=== PATIENT | male | born 1970 | race Caucasian/White ===

== ENCOUNTER 2020-12-09 11:40 | Observation (INO) | payer OTHER, SELFPAY ==
[2020-12-09] VITALS (7 sets, daily range): BP systolic 117–150; BP diastolic 76–106; PULSE 83–109; RESP 16–28; TEMP 35.9–36.7; O2SAT 96–100; BMI 28.9
--- NOTE | ~2020-12-09 | MR_ITS ---
EXAMINATION: MR brain/brain stem wo/w con EXAM DATE: 12/10/2020 10:32 INDICATION: Dysarthria. Headache. Slurred speech. Trigeminal neuralgia, facial pain. Right arm pain. TECHNIQUE: Multi-sequential, multiplanar MR images of the brain, brainstem, internal auditory canals were obtained without contrast. Whole brain sagittal T1, axial diffusion, gradient echo (T2*), T1, T 2, FLAIR sequences obtained. High resolution coronal 3-D FIESTA, coronal T1 FSE, axial T1 FSPGR of t he internal auditory canals. Patient was then injected with 14 cc Multihance contrast intravenously. Postcontrast axial and coronal T1 weighted whole brain, axial and coronal high resolution T1 IAC seq uences obtained. Correlation is made to head CT from yesterday. FINDINGS: No evidence of mastoid or middle ear opacification. The trigeminal and 7th/8th cranial ne rve complexes are symmetric, normal in course and caliber. No cerebellopontine angle masses. Exotic Dancer ior fossa unremarkable. There are no areas of restricted diffusion to suggest acute infarction. There is no acute hemorrhage seen on the T2*, a hemosiderin sensitive sequence. No intraparenchymal brain mass. The ventricles a re normal in size. There are no extra-axial collections. Flow voids are seen in the cerebral arteri es on the T2-weighted sequences consistent with their expected patency. The orbits are unremarkable. Soft tissue is unremarkable. IMPRESSION: 1. No acute intracranial findings. Reviewed, dictated and finalized at location A.
--- NOTE | ~2020-12-09 | CT_ITS ---
EXAMINATION: CT brain wo con EXAM DATE: 12/09/2020 12:44 INDICATION: Dysarthria, headache 5-7 days. Slurred speech and right facial pain. TECHNIQUE: Spiral CT of the head was performed without contrast. Axial, coronal and sagittal images were reviewed. The dose-length product (DLP) for this examination was 605.33 mGy-cm. The exposure w as tailored according to patient size, and iterative reconstruction (ASIR) was used as additional dos e reduction technique. Comparison is made to prior examination from 06/06/2019. FINDINGS: There is no acute intraparenchymal hemorrhage. No evidence of intraparenchymal brain mass lesion. No evidence of acute infarction. There is no mass effect or midline shift. The ventricles are normal in size. There are no extra-axial collections. There are no acute calvarial fractures. T he orbits are unremarkable. There is mild intracranial arterial sclerosis. Soft tissue is unremarkabl e. The visualized sinuses and mastoid air cells are well aerated. IMPRESSION: 1. No acute intracranial findings. Reviewed, dictated and finalized at location A.
--- NOTE | ~2020-12-09 | XR_ITS ---
XR chest 1V portable 12/09/2020 12:53 Indication: Transient alteration of awareness Procedure: AP portable chest Comparison: Comparison to multiple prior studies sequentially, with oldest reviewed study dated 06/13. Findings: There is chronic lingular scarring. Heart size normal. No focal air space disease, pulmonar y edema, pleural effusion or suspected pneumothorax. There are surgical changes of the left shoulder. Impression: 1: No acute cardiopulmonary disease. Reviewed, dictated and finalized at location B. Impression: 1: No acute cardiopulmonary disease.
--- NOTE | 2020-12-09 12:30 | ECG_ITS ---
Measurements Intervals [place] Rate: 102 P: 55 CO: 144 QRS: 52 QRSD: 90 T: 58 QT: 304 QTc: 396 Interpretive Statements SINUS TACHYCARDIA BORDERLINE ECG Electronically Signed On 12-09-2020 13:00:04 CDT by Sadi Karimi D.O.
[2020-12-09 12:42] LABS: Basophils Absolute Auto 0.1 K/mm3 (0.0-0.1); Basophils Percent Auto 1.1 % (0.2-1.2); Eosinophils Absolute Auto 0.2 K/mm3 (0-0.3); Eosinophils Percent Auto 2.1 % (0-4.4); Hematocrit 43.5 % (42.0-52.0); Hemoglobin 15.1 g/dL (14.0-18.0); Immature Granulocyte Absolute 0.05 K/mm3 (0.00-0.031); Immature Granulocyte Percent A 0.6 % (0-0.5); Lymphocytes Absolute Auto 2.21 K/mm3 (0.9-3.2); Lymphocytes Percent Auto 27.6 % (18.3-44.2); Mean Corpuscular HGB Conc 34.7 g/dl (32-36); Mean Corpuscular Hemoglobin 31.7 pg (26-34); Mean Corpuscular Volume 91.4 fl (80-100); Mean Platelet Volume 10.6 fl (7.4-10.4); Monocytes Absolute Auto 0.7 K/mm3 (0.1-0.6); Monocytes Percent Auto 9.3 % (2.6-8.5); Neutrophils Absolute Auto 4.7 K/mm3 (1.3-6.7); Neutrophils Percent Auto 59.3 % (45.5-73.1); Platelet Count Result 164 k/mm3 (150-375); Red Blood Count 4.76 M/mm3 (4.6-6.20); Red Cell Distribution Width 14.5 % (11.5-14.5)
[2020-12-09 12:52] LABS: Prothrombin Time 13.4 Seconds (11.1-14.7)
[2020-12-09 12:53] LABS: Partial Thromboplastin Time 25.6 SECONDS (22.3-36.8)
[2020-12-09 13:04] LABS: Anion Gap 9 mmol/L (8-16); Blood Urea Nitrogen 15 mg/dL (9-20); Calcium 8.7 mg/dL (8.4-10.2); Carbon Dioxide 17 mmol/L (22-30); Chloride 103 mmol/L (98-107); Estimated CRCL calculation 64 ml/min; Estimated Glomerular Filt Rate > 60; Glucose 570 mg/dL (75-110); Potassium 4.2 mmol/L (3.4-5.0); Sodium 129 mmol/L (137-145); Troponin I < 0.012 ng/mL (0.000-0.034)
[2020-12-09] MEDS: HYDROmorphone HCL INJ (*CRX) 1 MG/ML SYR 0.5 MG IV PUSH ×2 (13:54→20:35)
[2020-12-09] MEDS: INSULIN HUMAN REGULAR (*BKC) 100 UNITS/ML 10 UNITS IV PUSH (13:59)
[2020-12-09] MEDS: SODIUM CHLORIDE 0.9% IV 1,000 ML 999 ML IV CONT (14:00)
--- NOTE | 2020-12-09 14:02 | PC.NURSE ---
Pt speech has improved. States he needs to leave soon since he is moving to assisted living in 2 days. RN told pt that the EDP plans to admit him for further neuro workup. Pt states he will agree to stay.
--- NOTE | 2020-12-09 15:00 | PC.NURSE ---
pt states when he goes upstairs he would like to have the following for dinner: - cheeseburger (plain) - fries - iced tea - 3 mustard packets - 5 ketchup packets
[2020-12-09 15:01] LABS: Glucose Point of Care 226 (65-105)
--- NOTE | 2020-12-09 15:49 | ED.NEUROSD ---
HPI - Neuro Symptoms/Deficit General Chief Complaint: Neuro Symptoms/Deficit Stated Complaint: trigeminal neuralgia pain Time Seen by Provider: 12/09/20 12:23 History of Present Illness HPI Narrative: Patient is a 49-year-old male who presents ER with facial pain as well as slurred speech. Patient has history of trigeminal neuralgia and history of TIAs. Last 4 days patient has developed new persistent slurred speech and for couple days cannot speak at all. He has had no focal weakness or numbness of an arm or leg but is had some right-sided arm pain. He also reports he has had significant increase in the pain in his face related to his trigeminal neuralgia. He takes gabapentin daily without improvement of his pain. He has tried Tegretol in the past which does not help either. He has no fevers or chills or sweats. No productive cough. He is currently working to get in with a new neurosurgeon for evaluation of operative procedure to alleviate his discomfort. Related Data Home Medications Medication Instructions Recorded Confirmed albuterol sulfate INHALATION 12/09/20 gabapentin 12/09/20 hydrocodone-acetaminophen tablet 12/09/20 insulin glargine [Basaglar KwikPen SUBCUT 12/09/20 12/09/20 U-100 Insulin] lisinopril 12/09/20 topiramate 12/09/20 Allergies Allergy/AdvReac Type Severity Reaction Status Date / Time latex Allergy Unknown Blister Verified 12/09/20 12:33 Penicillins Allergy Unknown Nausea and Verified 12/09/20 12:33 Vomiting Review of Systems Review of Systems: All systems reviewed & are unremarkable except as noted in HPI and below Constitutional: Constitutional: Denies chills, Denies fever(s) and Denies weakness ENT: Denies nasal congestion and Denies sore throat Cardiovascular: Cardiovascular: Denies chest pain, Denies rapid heart rate and Denies radiating jaw, neck or arm pain Respiratory: Respiratory: Denies cough, Denies dyspnea and Denies wheezing Gastrointestinal: Gastrointestinal: Denies abdominal pain, Denies nausea and Denies vomiting Neurologic: Denies syncope, Denies headache(s), Denies focal weakness and Denies numbness Comments: Facial pain, dysarthria [facility] Past Medical History Medical History (Updated 12/09/20 @ 16:47 by Art Nolasco MD) COPD (chronic obstructive pulmonary disease) Diabetes DVT (deep venous thrombosis) Fibromyalgia Hepatitis B Myocardial infarction Pancreatitis TIA (transient ischemic attack) Trigeminal neuralgia Surgical History Surgical History (Updated 12/09/20 @ 15:56 by Art Nolasco MD) History of nasal surgery Social History Social History (Updated 12/09/20 @ 15:57 by Art Nolasco MD) Social History: History of alcohol abuse Gender identity (if verbalized by the patient): Male Exam Narrative: Exam Narrative: GENERAL: Well-appearing, well-nourished, and in no acute distress. HEAD: Normocephalic, atraumatic. EYES: PERRL and EOMI. ENT: Mucous membranes moist. CHEST: Clear to auscultation. No respiratory distress. HEART: Regular rate and rhythm. Normal peripheral pulses. ABDOMEN: Soft, nontender, nondistended. EXTREMITIES: Normal range of motion. No edema. SKIN: Warm, dry, no rash. NEURO: Mild dysarthria. No facial droop. No upper or lower extremity drift. Alert and oriented x3. PSYCH: Normal mood and affect. Course Course Emergency Course: Patient reports he did not take his insulin today because he ran out of needles. His blood sugars improved. Still has some mild dysarthria. Discussed with neurology and recommends admission for MRI to rule out stroke. Will speak with hospitalist service. Vital Signs Vital signs: Vital Signs Temperature 98.0 F 12/09/20 12:02 Pulse Rate 104 H 12/09/20 12:02 Respiratory Rate 18 12/09/20 12:02 Blood Pressure 134/94 H 12/09/20 12:02 Pulse Oximetry 98 12/09/20 12:02 Temperature 98.0 F 12/09/20 12:02 Pulse Rate 95 12/09/20 13:55 Resp
[2020-12-09] MEDS: HYDROcodone/acetaminophen (*CRX) 5-325 MG TABLET 1 TAB PO (17:10)
--- NOTE | 2020-12-09 18:05 | PC.NURSE ---
When performing the [place] Screening, the patient stated that he has thoughts of ending his own life, the patient states that he has no plans on how he would do that, the patient states that he has no intentions on ending his own life. Kanwal [place] notified of screen results.
--- NOTE | 2020-12-09 18:17 | PC.NURSE ---
Pt came out to room to ask if he can go downstairs to the cafeteria. This nurse explained to the patient that patients can not leave the unit. The patient got upset and started saying profanities. The patient stated that he is mad that he did not get the dinner that he wanted. This nurse offered a box lunch and he stated that he did not want it. This nurse offered to help the patient order another meal. The patient is currently on the phone to order a different tray and the patient took the box lunch.
--- NOTE | 2020-12-09 18:28 | PC.NURSE ---
The patient came out into the [place] and approached this nurse stating that he will not eat mashed potatoes and that he wants sri lankan fries. This nurse explained to the patient that his current diet limits sri lankan fries, but that the patient had the option to speak with the physician about his diet when the evening physicians round on him. The patient stated that this nurse has not helped him at all. The patient also told this nurse that she's been nothing but but a smart mouth The patient is continuing to use profanities with staff.
--- NOTE | 2020-12-09 19:45 | PM.IMHP ---
H&P: HPI History of Present Illness Date/Time: 12/09/20 19:45 Chief Complaint: Severe right-sided facial pain for the past 5 days++ Narrative: This is a 49-year-old diabetic male known to have a history of previous alcoholism, liver disease, and poorly controlled trigeminal neuralgia who presented to the hospital with a complaint of severe right-sided facial pain over the past 5 days. Patient also complains of slurred speech over the past 4 days which he states is related to his right-sided facial pain. Patient admits that he has had 15 years of poorly controlled right-sided facial pain which has been attributed to trigeminal neuralgia and he has seen neuro surgery for same which has recommended surgery as his pain has not been controlled well with medications. The patient has poorly controlled diabetes and admits to often not taking his insulin. Tonight he tells me he has not taken his insulin over the past few days because he is out of needles. Patient denies any difficulty swallowing, focal weakness, numbness, tingling, or facial droop. On further review he denies any fevers, chills, cough, chest pain, nausea, vomiting, abdominal pain, dysuria, hematuria, diarrhea, rectal bleeding, or lower extremity swelling. Patient decided to come to the hospital today as his right-sided facial pain was so severe he could no longer take it at home. On my encounter with him he admits that his slurred speech has improved significantly but he believes he still is not at baseline and has ongoing severe right-sided facial pain. The patient reports that he has a history of previous TIAs. ER provider has consulted neurology who has requested that we admit the patient to the hospital for stroke workup. The patient has no other complaints at this time. Review of Systems Review of Systems: All systems reviewed & are unremarkable except as noted in HPI and below PMFSH Past Medical History Medical History COPD (chronic obstructive pulmonary disease) Diabetes DVT (deep venous thrombosis) Fibromyalgia H/O: HTN (hypertension) Hepatitis B Myocardial infarction Pancreatitis TIA (transient ischemic attack) Trigeminal neuralgia Surgical History Surgical History History of nasal surgery Family History Family History Mother Breast cancer Social History Social History Social History: History of alcohol abuse Smoking status: Current every day smoker Tobacco type: cigars Alcohol intake: former Substance use: current Gender identity (if verbalized by the patient): Male Sexual Orientation (if Verbalized by the Patient): Straight or Heterosexual Spiritual care concerns: No Meds Home Medications and Allergies Home Medications Medication Instructions Recorded Confirmed Type albuterol sulfate 2 inh INHALATION PRN PRN 12/09/20 12/09/20 History gabapentin 600 mg PO TID 12/09/20 12/09/20 History insulin glargine [Basaglar KwikPen 20 unit SUBCUT DAILY 12/09/20 12/09/20 History U-100 Insulin] lisinopril 20 mg PO DAILY 12/09/20 12/09/20 History topiramate 50 mg PO BID 12/09/20 12/09/20 History Allergies Allergy/AdvReac Type Severity Reaction Status Date / Time latex Allergy Unknown Blister Verified 12/09/20 12:33 Penicillins Allergy Unknown Nausea and Verified 12/09/20 12:33 Vomiting Vital Signs Vital Signs - 24 hr 12/09/20 12:02 12/09/20 12:24 12/09/20 12:32 Temperature 36.7 C Pulse Rate 104 H 99 109 H Respiratory Rate 18 20 28 H Blood Pressure 134/94 H 123/90 123/90 Pulse Oximetry 98 96 96 12/09/20 13:55 12/09/20 17:10 12/09/20 17:40 Temperature 35.9 C L Pulse Rate 95 83 107 H Respiratory Rate 21 H 16 18 Blood Pressure 133/106 H 125/93 H 150/76 H Pulse Oximetry 100 100 100 Exam
[2020-12-09 20:04] LABS: Glucose Point of Care 323 (65-105)
[2020-12-09] MEDS: INSULIN ASPART (*BKC) 100 UNITS/ML 6 UNITS SUB-Q (20:34)
[2020-12-09] MEDS: GABAPENTIN 300 MG CAPSULE 600 MG PO (20:45)
[2020-12-09] MEDS: NICOTINE (*PBKC) 14 MG PATCH 1 PATCH TRANSDERM (20:46)
[2020-12-09] MEDS: TOPIRAMATE 25 MG TABLET 50 MG PO (20:46)
[2020-12-09] MEDS: LORazepam (*CRX) 0.5 MG TABLET PO (21:45)
[2020-12-09] MEDS: HYDROcodone/acetaminophen (*CRX) 7.5-325 MG TABLET 1 TAB PO (23:09)
[2020-12-10 00:55] LABS: Glucose Point of Care 265 (65-105)
[2020-12-10 02:13] LABS: Glucose Point of Care 422 (65-105)
[2020-12-10] MEDS: INSULIN ASPART (*BKC) 100 UNITS/ML 9 UNITS SUB-Q ×2 (02:40→12:33)
[2020-12-10] MEDS: HYDROcodone/acetaminophen (*CRX) 7.5-325 MG TABLET 1 TAB PO ×3 (03:10→12:35)
[2020-12-10 04:00] VITALS: PULSE 79
[2020-12-10] MEDS: LORazepam (*CRX) 0.5 MG TABLET PO (04:39)
[2020-12-10] MEDS: HYDROmorphone HCL INJ (*CRX) 1 MG/ML SYR 0.5 MG IV PUSH (05:15)
[2020-12-10 06:00] VITALS: BP 122/90; PULSE 100; RESP 20; TEMP 36.2; O2SAT 98
[2020-12-10 06:48] LABS: Basophils Absolute Auto 0.1 K/mm3 (0.0-0.1); Basophils Percent Auto 1.2 % (0.2-1.2); Eosinophils Absolute Auto 0.4 K/mm3 (0-0.3); Eosinophils Percent Auto 4.4 % (0-4.4); Hematocrit 44.4 % (42.0-52.0); Immature Granulocyte Absolute 0.04 K/mm3 (0.00-0.031); Immature Granulocyte Percent A 0.5 % (0-0.5); Lymphocytes Absolute Auto 2.96 K/mm3 (0.9-3.2); Lymphocytes Percent Auto 34.9 % (18.3-44.2); Mean Corpuscular HGB Conc 33.8 g/dl (32-36); Mean Corpuscular Hemoglobin 31.7 pg (26-34); Mean Corpuscular Volume 93.9 fl (80-100); Mean Platelet Volume 10.6 fl (7.4-10.4); Platelet Count Result 161 k/mm3 (150-375); Red Blood Count 4.73 M/mm3 (4.6-6.20); Red Cell Distribution Width 14.6 % (11.5-14.5); White Blood Count 8.5 K/mm3 (4.5-10.0)
[2020-12-10 06:57] LABS: Anion Gap 3 mmol/L (8-16); Blood Urea Nitrogen 14 mg/dL (9-20); Calcium 8.6 mg/dL (8.4-10.2); Carbon Dioxide 27 mmol/L (22-30); Chloride 107 mmol/L (98-107); Estimated CRCL calculation 51 ml/min; Estimated Glomerular Filt Rate 53; Glucose 280 mg/dL (75-110); Magnesium 1.9 mg/dL (1.6-2.3); Potassium 4.1 mmol/L (3.4-5.0); Sodium 137 mmol/L (137-145)
[2020-12-10 07:50] LABS: Glucose Point of Care 302 (65-105)
[2020-12-10 08:00] VITALS: PULSE 99
[2020-12-10] MEDS: INSULIN ASPART (*BKC) 100 UNITS/ML SUB-Q ×2 (08:00→14:50)
[2020-12-10] MEDS: INSULIN GLARGINE (*BKC) 100 UNITS/ML 20 UNITS SUB-Q (08:03)
[2020-12-10] MEDS: NICOTINE (*PBKC) 14 MG PATCH 1 PATCH TRANSDERM (08:08)
[2020-12-10] MEDS: GABAPENTIN 300 MG CAPSULE 600 MG PO ×2 (08:08→12:35)
[2020-12-10] MEDS: TOPIRAMATE 25 MG TABLET 50 MG PO (08:09)
[2020-12-10] MEDS: lisinopriL 20 MG TABLET PO (08:09)
[2020-12-10 11:31] LABS: Glucose Point of Care 435 (65-105)
[2020-12-10 12:00] VITALS: PULSE 91
--- NOTE | 2020-12-10 12:59 | WPDNEURCNPN ---
Assessment and Plan Assessment and plan (1) H/O: HTN (hypertension): Code(s): Z86.79 - Personal history of other diseases of the circulatory system Status: Chronic (2) Uncontrolled diabetes mellitus: Qualifiers: Diabetes mellitus type: type 2 Glycemic state: with hyperglycemia Qualified Code(s): E11.65 - Type 2 diabetes mellitus with hyperglycemia Code(s): E11.65 - Type 2 diabetes mellitus with hyperglycemia Status: Chronic (3) Trigeminal neuralgia: Code(s): G50.0 - Trigeminal neuralgia Status: Acute Additional Plan Chronic trigeminal neuralgia by history for which patient has already consulted the neurosurgical service at [facility] and awaiting the change in insurance company for the surgical intervention at the same time he has a except that new gabapentin has been helping the most in addition to the hydrocodone treatment will be continued as such Consult date: 12/10/20 Time Seen: 11:30 HPI: Marshall Nix III is a 49 year old maleHas been admitted to the hospital for the complaints of severe right-sided facial pain of 5 days duration in addition to history of 1. Previous alcoholism 2. Hepatic disease 3. Poorly controlled trigeminal neuralgic he presented to the hospital for the complains severe right-sided facial pain along with the slurred speech of 4 days duration in addition he reported that he has history of 15 years of poorly controlled right-sided facial pain attributed to trigeminal neuralgia he has been seen by the neurosurgical service at [facility] which were not accepting his present insurance so he is awaiting for the change in the insurance to get the surgical intervention he gave no history of any other associated neurological symptomatology he does have ongoing history of 1. Diabetes mellitus 2. COPD 3. Fibromyalgia 4. Hypertension 5. Hepatitis-B present he has been continued on gabapentin 600 mg p.o. t.i.d. which he thinks is the most helpful for him in addition to topiramate 50 mg twice a day and his antihypertensive medication and insulin lab again 20units subcu daily. Review of Systems Review of Systems: All systems reviewed & are unremarkable except as noted in HPI and below PMFSH Past Medical History Medical History COPD (chronic obstructive pulmonary disease) Diabetes DVT (deep venous thrombosis) Fibromyalgia H/O: HTN (hypertension) Hepatitis B Myocardial infarction Pancreatitis TIA (transient ischemic attack) Trigeminal neuralgia Surgical History Surgical History History of nasal surgery Family History Family History Mother Breast cancer Social History Social History Social History: History of alcohol abuse Smoking status: Current every day smoker Tobacco type: cigars Alcohol intake: former Substance use: current Gender identity (if verbalized by the patient): Male Sexual Orientation (if Verbalized by the Patient): Straight or Heterosexual Spiritual care concerns: No Meds Home Medications and Allergies Home Medications Medication Instructions Recorded Confirmed Type albuterol sulfate 2 inh INHALATION PRN PRN 12/09/20 12/09/20 History gabapentin 600 mg PO TID 12/09/20 12/09/20 History insulin glargine [Basaglar KwikPen 20 unit SUBCUT DAILY 12/09/20 12/09/20 History U-100 Insulin] lisinopril 20 mg PO DAILY 12/09/20 12/09/20 History topiramate 50 mg PO BID 12/09/20 12/09/20 History lorazepam [Ativan] 1 mg PO Q4H PRN 12/10/20 12/10/20 History Allergies Allergy/AdvReac Type Severity Reaction Status Date / Time latex Allergy Unknown Blister Verified 12/09/20 12:33 Penicillins Allergy Unknown Nausea and Verified 12/09/20 12:33 Vomiting Vital Signs Vital Signs - 24 hr 12/09/20 13:55 12/09/20 17:10 12/09/20 17:4
[2020-12-10 14:00] VITALS: BP 125/79; PULSE 93; RESP 20; TEMP 36.2; O2SAT 98
[2020-12-10] MEDS: LORazepam (*CRX) 1 MG TABLET PO (14:01)
[2020-12-10 14:32] LABS: Glucose Point of Care 326 (65-105)
--- NOTE | 2020-12-10 15:28 | PM.DS ---
DS: Admitting Diagnosis Admitting Diagnosis Admitting Diagnosis: facial pain DS: Discharge Diagnosis Discharge Diagnosis (1) Trigeminal neuralgia: Code(s): G50.0 - Trigeminal neuralgia Status: Acute Assessment and Plan: Patient's pain has improved the day of discharge and was eager to go home. Follow-up with established surgeon (2) Dysarthria: Code(s): R47.1 - Dysarthria and anarthria Status: Acute Assessment and Plan: Patient does have a chronic mild dysarthria but he reports no change. MRI of the brain negative (3) Uncontrolled diabetes mellitus: Qualifiers: Diabetes mellitus type: type 2 Glycemic state: with hyperglycemia Qualified Code(s): E11.65 - Type 2 diabetes mellitus with hyperglycemia Code(s): E11.65 - Type 2 diabetes mellitus with hyperglycemia Status: Chronic Assessment and Plan: Last glucose 326 down from 435. Patient has an A1c of 12.5. He states he did not take his insulin because he was out. I called his pharmacy who stated that he has insulin ready for pickup as well as needles with no co-pay. 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 He says he has a glucometer and lancets. He understands the repercussions of uncontrolled diabetes and states he will establish with a primary care physician. (4) H/O: HTN (hypertension): Code(s): Z86.79 - Personal history of other diseases of the circulatory system Status: Chronic Assessment and Plan: Last blood pressure 125/79. Continue lisinopril. (5) Tobacco dependence: Code(s): F17.200 - Nicotine dependence, unspecified, uncomplicated Status: Chronic Assessment and Plan: I have counseled the patient for 4 minutes regarding tobacco cessation. DS: Summary Hospital Course Hospital Course: Patient is a 49 year old male with a history diabetes and trigeminal neuralgia who presented emergency room facial pain, headache, and possible slurred speech. Vitals in the ER were Pulse 104, respiratory rate 18, blood pressure 134/94, pulse ox 98 on room air. CBC within normal limits. BMP showed a glucose of 570. Head CT was negative for acute pathology as was the chest x-ray. Patient was admitted to the hospitalist service under observation for stroke rule out. His symptoms improved throughout his stay. He obtained an MRI of the brain which was negative for acute pathology. The patient stated he was at baseline the day of discharge and was eager to go. I suspect his symptoms were due to facial pain from trigeminal neuralgia with possible migraine/headache. As for his uncontrolled diabetes, he states he has not been taking his insulin because he was at of needles. He says he has all other devices at home to monitor his blood glucose. I called his pharmacy directly and the pharmacist told me he has refills of the needles and insulin already ordered. I spoke to the patient about this and he is going to go pick them up. He understands that his diabetes is under control and understands the complications in the risk of this. He needs a primary care physician and I gave him information on a clinic where he is staying. He is going to follow-up with them next week. Patient was educated about the worrisome signs and symptoms come back to emergency room for was discharged stable condition. Time spent discussing smoking cessation with patient: more than 10 minutes Status at Discharge Functional status at discharge: independent ambulation Overall status at discharge: patient is back to baseline Time Spent with Patient Time attestation: Total time spent providing and/or coordinating discharge services:38 min Time spent: Greater than 30 minutes Exam Narrative: Exam Narrative: General: Well developed well nourished patient in NAD HEENT: normocephalic, pain to the right lateral cheek. Abl
[2020-12-10 19:05] LABS: Hemoglobin A1C 12.5 % (<5.7)
== END 2020-12-10 15:52 | disposition home or self-care (01) ==
LOC: ANHED 16:47 → ANH3MEDSUR 17:11
PROVIDERS: Family Medicine; Physician Assistant; Admitting Provider Internal Medicine; Emergency Provider Emergency Medicine; Visit Provider Internal Medicine
DX: G50.0 Trigeminal neuralgia (principal); R47.1 Dysarthria and anarthria; E11.65 Type 2 diabetes mellitus with hyperglycemia; F17.290 Nicotine dependence, other tobacco product, uncomplicated; J44.9 Chronic obstructive pulmonary disease, unspecified; I10 Essential (primary) hypertension; I25.2 Old myocardial infarction; Z86.73 Personal history of transient ischemic attack (TIA), and cerebral infarction without residual deficits; Z79.4 Long term (current) use of insulin; Z86.718 Personal history of other venous thrombosis and embolism
CPT/HCPCS: 36415; 70450; 70553; 71045; 80048; 82948; 83036; 83735; 84443; 84484; 85025; 85610; 85730; 93005; 96361; 96374; 96375; 96376; 99285; A9270; A9577; G0378; G0379; J1170; J1815; J7030

== ENCOUNTER 2021-05-08 15:45 | Outpatient (CLI) | payer OTHER, SELFPAY ==
--- NOTE | ~2021-05-08 | MR_ITS ---
EXAMINATION: MR knee LT wo con DATE: 05/08/2021 16:38 INDICATION: Tear of the medial meniscus of the left knee TECHNIQUE: Magnetic resonance imaging (MRI) of the left knee was performed without intravenous contra st. Sequences included coronal PD-weighted FSE, coronal PD-weighted FS FSE, sagittal T2-weighted FSE , sagittal PD-weighted FS FSE and axial PD weighted fat saturated FSE. COMPARISON: None. FINDINGS: Medial compartment: Medial meniscus is normal. There is prominent edema throughout the medial femoral condyle centered ar ound a region of subtle depression and irregularity of the articular cortex at the anterior weightbea ring medial femoral condyle. Differential would include impaction, stress or insufficiency fracture. The articular cartilage in the medial compartment including over the region of cortical irregularity appears normal. Lateral compartment: Lateral meniscus is normal. Articular cartilage is normal. Patellofemoral compartment: Small region of deep chondral ulceration at the inferior aspect of the medial trochlea. At the site o f the ulceration is a small central subchondral osteophyte which projects 2 mm beyond the articular c ortex. Articular cartilage in the patellofemoral compartment is otherwise normal. Ligaments and tendons: Anterior and posterior cruciate ligaments are normal. The medial collateral ligament and fibular garrick ateral ligament complex are normal. The extensor mechanism is normal. The visualized medial and later al hamstring tendons as well as the iliotibial band are normal. Fluid: Physiologic amount of fluid in the joint space. No loose osteochondral bodies identified. IMPRESSION: 1. Minimal depression of small portion of the articular surface at the anterior weightbearing medial femoral condyle with prominent surrounding marrow edema which represent sequela of either impaction, stress or insufficiency fracture. 2. Small region of high-grade chondromalacia at the inferior aspect of the medial trochlea. Reviewed, dictated and finalized at location B. IMPRESSION: 1. Minimal depression of small portion of the articular surface at the anterior weightbearing medial femoral condyle with prominent surrounding marrow edema w hich represent sequela of either impaction, stress or insufficiency fracture. 2. Small region of high-grade chondromalacia at the inferior aspect of the medi al trochlea.
== END 2021-05-08 15:46 | disposition home or self-care (01) ==
PROVIDERS: Visit Provider Physician Assistant
DX: S83.242A Other tear of medial meniscus, current injury, left knee, initial encounter (principal); M79.89 Other specified soft tissue disorders; M94.262 Chondromalacia, left knee
CPT/HCPCS: 73721

== ENCOUNTER 2021-08-09 12:07 | Emergency (ER) | payer OTHER, SELFPAY ==
[2021-08-09 12:34] VITALS: BP 152/106; PULSE 112; RESP 16; TEMP 36.4; O2SAT 100
--- NOTE | 2021-08-09 12:35 | ED.GENADULT ---
HPI - General Adult General Chief complaint: Nausea/Vomiting/Diarrhea Stated complaint: vomiting,uti Time Seen by Provider: 08/09/21 12:23 Source: patient and family Mode of arrival: ambulatory Limitations: no limitations History of Present Illness HPI narrative: Patient came to the emergency room with his because of intermittent vomiting. Patient also have history of trigeminal neuralgia, and his home medication does not work and his neurologist declined his insurance and would like to have help. Patient requested anxiety and pain medication. Patient denies any fever, chills, abdominal pain, diarrhea or constipation. Patient is fully vaccinated for COVID-19. . Patient complaining of intermittent chronic right facial pain, today is not different than before.. Patient requesting a prescription for pain medication Related Data Home Medications Medication Instructions Recorded Confirmed No Home Medications 08/09/21 08/09/21 Allergies Allergy/AdvReac Type Severity Reaction Status Date / Time latex Allergy Unknown Blister Verified 08/09/21 12:48 Penicillins Allergy Unknown Nausea and Verified 08/09/21 12:48 Vomiting ketorolac [From Toradol] Allergy Unknown Verified 08/09/21 12:59 morphine AdvReac Vomiting Verified 08/09/21 12:59 Review of Systems Review of Systems: CONSTITUTIONAL: Denies fever, chills, or sweats. EYES: Denies visual changes, redness, or discharge. ENT: Denies rhinorrhea, congestion, sore throat, or otalgia. CARDIOVASCULAR: Denies chest pain, palpitations, or edema. RESPIRATORY: Denies cough or dyspnea. GASTROINTESTINAL: Denies abdominal pain, nausea, vomiting, or diarrhea. GENITOURINARY: Denies dysuria or hematuria. SKIN: Denies rash or itching. MUSCULOSKELETAL: Denies back pain, joint pain, or myalgia. NEUROLOGIC: Denies headache, numbness, or weakness. PSYCHIATRIC: Anxious PMFSH Past Medical History Medical History COPD (chronic obstructive pulmonary disease) Diabetes DVT (deep venous thrombosis) Fibromyalgia H/O: HTN (hypertension) Hepatitis B Myocardial infarction Pancreatitis TIA (transient ischemic attack) Trigeminal neuralgia Surgical History Surgical History History of nasal surgery Family History Family History Mother Breast cancer Social History Social History Social History: History of alcohol abuse Smoking status: Current every day smoker Tobacco type: cigars Alcohol intake: former Substance use: current Gender identity (if verbalized by the patient): Male Sexual Orientation (if Verbalized by the Patient): Straight or Heterosexual Spiritual care concerns: No Exam Narrative: General appearance: Well-developed, well-nourished Skin: Normal color Head: Normocephalic, nontraumatic Eyes: Clear conjunctiva ENT: Oropharynx normal, ears normal, nose normal Neck: Supple, nontender Chest and respiratory: Airway patent, no respiratory distress, no accessory muscle use Heart: Regular rate/rhythm Abdomen: Soft, nontender, no organomegaly, quiet bowel sounds Vascular: Normal peripheral pulses, normal capillary refill. Musculoskeletal: Normal range of motion, nontender back Neurologic: Alert and oriented ?3, [employer] is normal as tested, no gross motor deficit Course Course Emergency Course: Stable Vital Signs Vital signs: Vital Signs Temperature 36.4 C L 08/09/21 12:34 Pulse Rate 112 H 08/09/21 12:34 Respiratory Rate 16 08/09/21 12:34 Blood Pressure 152/106 H
[2021-08-09] MEDS: SODIUM CHLORIDE 0.9% IV 1,000 ML 999 ML IV CONT (12:56)
[2021-08-09 13:00] LABS: Basophils Absolute Auto 0.1 K/mm3 (0.0-0.1); Basophils Percent Auto 0.4 % (0.2-1.2); Eosinophils Absolute Auto 0.1 K/mm3 (0-0.3); Eosinophils Percent Auto 1.2 % (0-4.4); Hemoglobin 14.6 g/dL (14.0-18.0); Immature Granulocyte Absolute 0.06 K/mm3 (0.00-0.031); Immature Granulocyte Percent A 0.5 % (0-0.5); Lymphocytes Absolute Auto 1.59 K/mm3 (0.9-3.2); Lymphocytes Percent Auto 13.1 % (18.3-44.2); Mean Corpuscular Hemoglobin 33.1 pg (26-34); Mean Corpuscular Volume 97.5 fl (80-100); Mean Platelet Volume 9.9 fl (7.4-10.4); Monocytes Absolute Auto 1.5 K/mm3 (0.1-0.6); Monocytes Percent Auto 12.5 % (2.6-8.5); Neutrophils Absolute Auto 8.8 K/mm3 (1.3-6.7); Neutrophils Percent Auto 72.3 % (45.5-73.1); Platelet Count Result 144 k/mm3 (150-375); Red Blood Count 4.41 M/mm3 (4.6-6.20); Red Cell Distribution Width 14.8 % (11.5-14.5); White Blood Count 12.1 K/mm3 (4.5-10.0)
[2021-08-09 13:09] LABS: Add Urine Microscopic? YES; Appearance Urine Clear (Clear); Bacteria Urine Trace /hpf; Bilirubin Urine Negative (Negative); Blood Urine 1+ (Negative); Color Urine Straw (Yellow); Glucose Urine UA Negative (Negative); Ketones Urine Negative (Negative); Leukocyte Esterase Ur 2+ LEU/UL (Negative); Nitrate Urine Negative (Negative); Protein Urine Negative (Negative); Urobilinogen Urine Negative mg/dL (<2.0); WBC Urine 21-30 /hpf
[2021-08-09 13:14] LABS: Amphetamine Screen Urine Negative (Negative); Barbiturate Screen Urine Negative (Negative); Benzodiazepines Screen Urine Negative (Negative); Cannabinoid Screen Urine Negative (Negative); Cocaine Screen Urine Negative (Negative); Methadone Screen Urine Negative (Negative); Opiate Screen Urine Negative (Negative); Phencyclidine Screen Urine Negative (Negative); Specific Grav Ur 1.003 (1.001-1.035)
[2021-08-09 13:21] VITALS: PULSE 88; RESP 16; O2SAT 98
[2021-08-09] MEDS: HYDROmorphone HCL INJ (*CRX) 1 MG/ML SYR 0.5 MG IV PUSH (14:06)
[2021-08-09] MEDS: METOCLOPRAMIDE HCL INJ 10 MG/2 ML VIAL IV PUSH (14:07)
[2021-08-09] MEDS: LORazepam INJ (*CRX) 2 MG/ML VIAL 1 MG IV PUSH (14:07)
[2021-08-09] MEDS: diphenhydrAMINE HCl INJ 50 MG/ML VIAL 25 MG IV PUSH (14:07)
[2021-08-09 14:20] VITALS: BP 146/105; PULSE 90; RESP 16; O2SAT 99
== END 2021-08-09 14:42 | disposition home or self-care (01) ==
PROVIDERS: Emergency Provider Emergency Medicine
DX: G50.0 Trigeminal neuralgia (principal); R11.10 Vomiting, unspecified; J44.9 Chronic obstructive pulmonary disease, unspecified; E11.9 Type 2 diabetes mellitus without complications; I10 Essential (primary) hypertension; I25.2 Old myocardial infarction; M79.7 Fibromyalgia; Z86.718 Personal history of other venous thrombosis and embolism; Z86.19 Personal history of other infectious and parasitic diseases; Z86.73 Personal history of transient ischemic attack (TIA), and cerebral infarction without residual deficits; F17.290 Nicotine dependence, other tobacco product, uncomplicated
CPT/HCPCS: 36415; 80307; 81001; 85025; 87077; 87086; 87088; 87186; 96361; 96374; 96375; 99284; J1170; J1200; J2060; J2765; J7030

== ENCOUNTER 2021-08-31 13:20 | Emergency (ER) | payer OTHER, SELFPAY ==
[2021-08-31 13:41] VITALS: BP 100/71; PULSE 116; RESP 18; TEMP 36.4; O2SAT 100
[2021-08-31 14:03] LABS: Glucose Point of Care 183 mg/dl (65-105)
--- NOTE | 2021-08-31 14:03 | PC.NURSE ---
Per mother pt had verbalized thoughts yesterday of harming himself. Pt adamantly denies SI or HI thoughts and wants to go home. States i cant wait that long, theyre not going to tell me anything different. I just want to go home. Mom at bedside states that she will be leaving after the doctor sees him and wont be giving him a ride home.
--- NOTE | 2021-08-31 14:25 | PC.NURSE ---
Pt having chest pain but refusing an EKG. States I dont want none of that. Is the doctor going to be in soon I cant wait no 2 hours. Pt told that the doctor will be in as soon as he can but there are other patients. Pt states I know you guys are busy. I just cant wait that long.
--- NOTE | 2021-08-31 14:28 | PC.NURSE ---
Pt also refusing to be hooked up to cardiac monitors and changing into a gown.
[2021-08-31 14:40] LABS: Alanine Aminotransferase 42 U/L (4-50); Albumin Level 3.4 g/dL (3.5-5.1); Alkaline Phosphatase 128 U/L (38-126); Anion Gap 10 mmol/L (8-16); Aspartate Amino Transferase 49 U/L (17-59); Blood Urea Nitrogen 53 mg/dL (9-20); Carbon Dioxide 16 mmol/L (22-30); Chloride 97 mmol/L (98-107); Estimated CRCL calculation 43 ml/min; Estimated Glomerular Filt Rate 53; Glucose 180 mg/dL (65-110); Sodium 123 mmol/L (137-145)
--- NOTE | 2021-08-31 14:41 | PC.NURSE ---
PT asking nurse to remove his IV. States he is leaving and calling a cab. RN asked pt again if he was having any thoughts of self harm. Pt again denied having any suicidal thoughts or plan. Pts mom yelling at him to sit down and stay and see the doctor. PT states he is not staying and proceeds to walk out of department after IV removed. Pt on the phone with [employer] and ambulated out of department with mom following behind him.
[2021-08-31 15:53] LABS: Basophils Absolute Auto 0.1 K/mm3 (0.0-0.1); Basophils Percent Auto 0.5 % (0.2-1.2); Eosinophils Absolute Auto 0.1 K/mm3 (0-0.3); Eosinophils Percent Auto 0.5 % (0-4.4); Hemoglobin 13.3 g/dL (14.0-18.0); Immature Granulocyte Absolute 0.16 K/mm3 (0.00-0.031); Immature Granulocyte Percent A 1.1 % (0-0.5); Lymphocytes Absolute Auto 3.35 K/mm3 (0.9-3.2); Lymphocytes Percent Auto 22.7 % (18.3-44.2); Mean Corpuscular Hemoglobin 33.8 pg (26-34); Mean Corpuscular Volume 96.4 fl (80-100); Mean Platelet Volume 10.9 fl (7.4-10.4); Monocytes Absolute Auto 1.5 K/mm3 (0.1-0.6); Monocytes Percent Auto 10.1 % (2.6-8.5); Neutrophils Absolute Auto 9.6 K/mm3 (1.3-6.7); Neutrophils Percent Auto 65.1 % (45.5-73.1); Nucleated Red Blood Cells Perc 0.1 % (0.0-0.2); Platelet Count Result 187 k/mm3 (150-375); Red Blood Count 3.94 M/mm3 (4.6-6.20); Red Cell Distribution Width 14.5 % (11.5-14.5); White Blood Count 14.8 K/mm3 (4.5-10.0)
== END 2021-09-01 04:09 | disposition left against medical advice (07) ==
PROVIDERS: Emergency Provider Emergency Medicine
DX: R47.81 Slurred speech (principal)
CPT/HCPCS: 36415; 80053; 82948; 85025; 99199

== ENCOUNTER 2021-11-24 14:03 | Emergency (ER) | payer OTHER, SELFPAY ==
[2021-11-24 14:26] VITALS: BP 174/111; PULSE 108; RESP 20; TEMP 37.1; O2SAT 100
[2021-11-24 15:26] LABS: Hematocrit 27.3 % (42.0-52.0); Hemoglobin 8.5 g/dL (14.0-18.0); Mean Corpuscular HGB Conc 31.1 g/dl (32-36); Mean Corpuscular Hemoglobin 29.6 pg (26-34); Mean Corpuscular Volume 95.1 fl (80-100); Mean Platelet Volume 8.6 fl (7.4-10.4); Platelet Count Result 248 k/mm3 (150-375); Red Blood Count 2.87 M/mm3 (4.6-6.20); Red Cell Distribution Width 22.4 % (11.5-14.5); White Blood Count 5.7 K/mm3 (4.5-10.0)
[2021-11-24 15:33] LABS: Eosinophils Absolute Manual 0.05 K/mm3 (0.02-0.5); Eosinophils Percent Manual 1 % (0-4); Lymphocytes Absolute Manual 2.16 K/mm3 (1.1-4.5); Monocytes Absolute Manual 0.57 K/mm3 (0.1-0.90); Monocytes Percent Manual 10 % (3-9); Neutrophils Percent Manual 51 % (46-73); Platelet Estimate Adequate (Adequate); Total Cells Counted 100
[2021-11-24 15:35] LABS: Add Urine Microscopic? YES; Appearance Urine Cloudy (Clear); Bilirubin Urine Negative (Negative); Blood Urine 1+ (Negative); Color Urine Yellow (Yellow); Glucose Urine UA Negative (Negative); Ketones Urine Negative (Negative); Leukocyte Esterase Ur 3+ LEU/UL (Negative); Mucus Urine Rare /lpf; Nitrate Urine Positive (Negative); Protein Urine Negative (Negative); Specific Grav Ur 1.013 (1.001-1.035); Urobilinogen Urine Negative mg/dL (<2.0); WBC Urine 21-30 /hpf
[2021-11-24 15:45] LABS: Alanine Aminotransferase 37 U/L (4-50); Albumin Level 2.6 g/dL (3.5-5.1); Alkaline Phosphatase 185 U/L (38-126); Anion Gap 1 mmol/L (8-16); Aspartate Amino Transferase 51 U/L (17-59); Bilirubin,Total 0.3 mg/dL (0.2-1.3); Blood Urea Nitrogen 11 mg/dL (9-20); Calcium 7.4 mg/dL (8.4-10.2); Carbon Dioxide 25 mmol/L (22-30); Chloride 106 mmol/L (98-107); Estimated CRCL calculation 52 ml/min; Estimated Glomerular Filt Rate > 60; Glucose 92 mg/dL (65-110); Lipase 82 U/L (23-300); Potassium 3.3 mmol/L (3.4-5.0); Sodium 132 mmol/L (137-145)
--- NOTE | 2021-11-24 15:48 | ED.GENADULT ---
HPI - General Adult General Chief complaint: Nausea/Vomiting/Diarrhea Stated complaint: unspecified Time Seen by Provider: 11/24/21 15:24 History of Present Illness HPI narrative: Patient states he does have a abscess in his lung has had persistent nausea and vomiting for the last month and has had swelling of his bilateral feet. Patient states he was recently admitted at [facility] and had been on IV antibiotics for approximately 4 days for a lung abscess. They had discussed transfer to [facility] or [facility]. Patient felt that he was not improving so he decided to sign out AMA and has not had further follow-up. On 11/[address] showing right lower lobe with complex consolidation demonstrating fluid and air measuring 8.4 x 9.6 x 5 cm. Central endobronchial obstructing process cannot be excluded and should be considered. Related Data Home Medications Medication Instructions Recorded Confirmed albuterol sulfate INHALATION 11/24/21 11/24/21 nitrofurantoin monohyd/m-cryst 11/24/21 Allergies Allergy/AdvReac Type Severity Reaction Status Date / Time latex Allergy Unknown Blister Verified 11/24/21 15:17 Penicillins Allergy Unknown Nausea and Verified 11/24/21 15:17 Vomiting ketorolac [From Toradol] Allergy Unknown Verified 11/24/21 15:17 morphine AdvReac Vomiting Verified 11/24/21 15:17 Review of Systems Review of Systems: CONSTITUTIONAL: Denies fever, chills, or sweats. EYES: Denies visual changes, redness, or discharge. ENT: Denies rhinorrhea, congestion, sore throat, or otalgia. CARDIOVASCULAR:bilateral feet swelling RESPIRATORY: Denies cough or dyspnea. GASTROINTESTINAL: n/v GENITOURINARY: Denies dysuria or hematuria. SKIN: Denies rash or itching. MUSCULOSKELETAL: Denies back pain, joint pain, or myalgia. NEUROLOGIC: Denies headache, numbness, or weakness. PSYCHIATRIC: Denies anxiety or depression. [facility] Past Medical History Medical History COPD (chronic obstructive pulmonary disease) Diabetes DVT (deep venous thrombosis) Fibromyalgia H/O: HTN (hypertension) Hepatitis B Myocardial infarction Pancreatitis TIA (transient ischemic attack) Trigeminal neuralgia Surgical History Surgical History History of nasal surgery Family History Family History Mother Breast cancer Social History Social History Social History: History of alcohol abuse Smoking status: Current every day smoker Tobacco type: cigars Alcohol intake: former Substance use: current Gender identity (if verbalized by the patient): Male Sexual Orientation (if Verbalized by the Patient): Straight or Heterosexual Spiritual care concerns: No Exam Narrative: APPEARANCE: Well appearing, no pain, no distress, well-nourished. HEAD: normocephalic, atraumatic. EYES: PERRLA/EOMI, conjunctivae clear. NOSE: Normal no drainage RESPIRATORY: Airway patent, respirations nonlabored. Clear to auscultation bilaterally, no rales, rhonchi, wheezing. CARDIOVASCULAR: Regular rate and rhythm without murmurs rubs or gallops. ABDOMINAL: Soft, nontender, nondistended, normal bowel sounds MUSCULOSKELETAL: Moves all extremities. Strength/ROM intact, No edema, No calf tenderness. NEURO: Alert. Cranial nerves II through XII intact. Good gait. Good coordination SKIN: Warm, dry. Normal Color Course Course Emergency Course: Patient initially declined the CT. Ultimately patient decided to leave [place]. Patient states he will go to either [facility] or [place]. Patient was well-appearing in no distress at time of leaving. Vital Signs Vital signs: Vital Signs Temperature 98.8 F 11/24/21 14:26 Pulse Rate 108 H 11/24/21 14:26 Respiratory Rate 20 11/24/21 14:26 Blood Pressure 174/111 H 11/24/21 14:26 Pulse Oximetry 100 11/24/21 14:26 Temperatu
--- NOTE | 2021-11-24 16:09 | PC.NURSE ---
interactive video technician to charge desk to inform staff that patient was trying to decide if he wanted to the scan done. pt asked by this RN if he was refusing CT scan and pt reporting yeah I don't want no cat scan, I've already had one of those . pt stating he wants to go over to [facility] and receive care there because he doesn't want to be at our hospital for 11 hours. pt signed refusal of care and AMA form. pt understands risks of leaving.
== END 2021-11-24 16:18 | disposition left against medical advice (07) ==
PROVIDERS: Emergency Medicine; Emergency Provider Emergency Medicine
DX: R11.2 Nausea with vomiting, unspecified (principal); R06.00 Dyspnea, unspecified; J44.9 Chronic obstructive pulmonary disease, unspecified; E11.9 Type 2 diabetes mellitus without complications; Z86.718 Personal history of other venous thrombosis and embolism; I10 Essential (primary) hypertension; I25.2 Old myocardial infarction; M79.7 Fibromyalgia; Z86.73 Personal history of transient ischemic attack (TIA), and cerebral infarction without residual deficits; F17.290 Nicotine dependence, other tobacco product, uncomplicated
CPT/HCPCS: 36415; 80053; 81001; 83690; 85025; 87077; 87086; 87088; 87186; 99283

== ENCOUNTER 2021-12-10 12:10 | Emergency (ER) | payer OTHER, SELFPAY ==
--- NOTE | ~2021-12-10 | CT_ITS ---
EXAMINATION: CT abdomen pelvis w con DATE: 12/10/2021 14:21 INDICATION: Decreased appetite for one month. Nausea and vomiting. TECHNIQUE: Computed tomography (CT) of the abdomen and pelvis was performed with 100 CC Omnipaque 350 intravenous contrast. Automated exposure control and iterative reconstruction technique were employe d. Exam dose: 375.41 mGy-cm total exam DLP. COMPARISON: Numerous CT abdomen pelvis FINDINGS: There is minimal discoid atelectasis or scarring at the lingula. There is right lower lobe infiltrate and atelectasis. There is prominent soft tissue density within the distal esophageal lumen, measuring up to 2 cm AP an d 2.5 cm transverse dimension. This might be refluxed gastric contents, versus retained foodstuffs du e to distal esophageal stricture or soft tissue mass of the esophagus. There is circumferential soft tissue thickening of the distal esophageal wall. Further evaluation by means of this area and swallow or upper endoscopy is recommended. 6.8 mm gallstone is noted in the dependent gallbladder lumen. No gallbladder wall thickening or peric holecystic fluid or fat stranding. There is prominent surface nodularity of the liver, consistent with cirrhosis. Spleen is within upper normal limits for size. No pancreatic mass lesion, calcification or ductal dilatation. Normal morphology of the adrenal glands. And occasional bilateral renal cysts including: Approximately 12 mm upper pole right renal cyst. 11 m m probable left renal cyst. No urinary tract calculus or hydroureteronephrosis. Normal appendix. There is a prominent amount of fecal material within the colon but no evidence of isabelle wel obstruction. No intraperitoneal free air. The urinary bladder and prostate gland are unremarkable. There is atherosclerotic calcification of the abdominal aorta and iliac and femoral arteries but no a neurysm. No intraperitoneal or retroperitoneal or pelvic mass lesion or adenopathy or ascites. 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 Multiple healing bilateral rib fractures. Prominent patchy sclerosis of L4 with partial collapse of this vertebral body, possibly a pathologic fracture this is a new finding since 10/22/2017. Clinical correlation is advised. There is moderate loss of height and anterior wedging of T12 and L1 vertebral bodies; the L1 compress ion fracture is new since 10/22/2017. IMPRESSION: Circumferential soft tissue thickening of the distal esophagus with possible obstructed c ontents of the distal esophagus lumen versus esophageal soft tissue mass lesion. Consider barium swal low or upper endoscopy Cholelithiasis Cirrhosis Bilateral renal cysts Multiple bilateral healing rib fractures and old ununited posterior lateral right 10th rib fracture Chronic T12 compression fracture New L1 compression fracture New patchy sclerosis and partial collapse of L4, suggesting pathologic fracture Reviewed, dictated and finalized at [facility] Reviewed, dictated and finalized at [facility] IMPRESSION: Circumferential soft tissue thickening of the distal esophagus with possible obstructed contents of the distal esophagus lumen versus esophageal s oft tissue mass lesion. Consider barium swallow or upper endoscopy Cholelithiasis Cirrhosis Bilateral renal cysts Multiple bilateral healing rib fractures and old ununited posterior lateral rig ht 10th rib fracture Chronic T12 compression fracture New L1 compression fracture New patchy sclerosis and partial collapse of L4, suggesting pathologic fracture
[2021-12-10 12:14] VITALS: BP 107/62; PULSE 118; RESP 20; TEMP 36.8; O2SAT 98
--- NOTE | 2021-12-10 13:14 | ED.NAVMDI ---
HPI - Nausea/Vomiting/Diarrhea General Chief complaint: Nausea/Vomiting/Diarrhea Stated complaint: N/V Time Seen by Provider: 12/10/21 12:24 History of Present Illness HPI Narrative: 50-year-old male presents the emergency room with abdominal pain nausea vomiting for 3 weeks. Patient states he is unable to keep anything down. Patient is seen here multiple times for similar complaints. Most recently patient was here 3 weeks ago and left AMA. denies fever, denies diarrhea or constipation. Patient does have a history of hernia repair. Related Data Home Medications Medication Instructions Recorded Confirmed albuterol sulfate INHALATION 11/24/21 11/24/21 nitrofurantoin monohyd/m-cryst 11/24/21 Allergies Allergy/AdvReac Type Severity Reaction Status Date / Time latex Allergy Unknown Blister Verified 11/24/21 15:17 Penicillins Allergy Unknown Nausea and Verified 11/24/21 15:17 Vomiting ketorolac [From Toradol] Allergy Unknown Verified 11/24/21 15:17 morphine AdvReac Vomiting Verified 11/24/21 15:17 Review of Systems Review of Systems: CONSTITUTIONAL: Denies fever, chills, or sweats. EYES: Denies visual changes, redness, or discharge. ENT: Denies rhinorrhea, congestion, sore throat, or otalgia. CARDIOVASCULAR: Denies chest pain, palpitations, or edema. RESPIRATORY: Denies cough or dyspnea. GASTROINTESTINAL: Reports abdominal pain, nausea, vomiting GENITOURINARY: Denies dysuria or hematuria. SKIN: Denies rash or itching. MUSCULOSKELETAL: Denies back pain, joint pain, or myalgia. NEUROLOGIC: Denies headache, numbness, dizziness, or weakness. PSYCHIATRIC: Denies anxiety or depression. [facility] Past Medical History Medical History COPD (chronic obstructive pulmonary disease) Diabetes DVT (deep venous thrombosis) Fibromyalgia H/O: HTN (hypertension) Hepatitis B Myocardial infarction Pancreatitis TIA (transient ischemic attack) Trigeminal neuralgia Surgical History Surgical History History of nasal surgery Family History Family History Mother Breast cancer Social History Social History Social History: History of alcohol abuse Smoking status: Current every day smoker Tobacco type: cigars Alcohol intake: former Substance use: current Gender identity (if verbalized by the patient): Male Sexual Orientation (if Verbalized by the Patient): Straight or Heterosexual Spiritual care concerns: No Exam Narrative: GENERAL: Appears ill HEAD: Normocephalic, atraumatic. EYES: PERRLA and EOMI. CHEST: Clear to auscultation. No respiratory distress. No wheezes rales or rhonchi HEART: Regular rate and rhythm. No murmur heard. Normal peripheral pulses. ABDOMEN: Right upper quadrant, right lower quadrant tenderness. Hypoactive bowel sounds EXTREMITIES: Normal range of motion. No edema. SKIN: Warm, dry, no rash. NEURO: No focal deficits. Alert and oriented x3. PSYCH: Normal mood and affect. Course Vital Signs Vital signs: Vital Signs Temperature 36.8 C 12/10/21 12:14 Pulse Rate 118 H 12/10/21 12:14 Respiratory Rate 20 12/10/21 12:14 Blood Pressure 107/62 12/10/21 12:14 Pulse Oximetry 98 12/10/21 12:14 Temperature 36.8 C 12/10/21 12:14 Pulse Rate 118 H 12/10/21 12:14 Respiratory Rate 20 12/10/21 12:14 Blood Pressure 107/62 12/10/21 12:14 Pulse Oximetry 98 12/10/21 12:14 MDM - Nausea/Vomiting/Diarrhea MDM Narrative Medical decision making narrative: 50-year-old male presents emergency room complaining of a nausea and vomiting for multiple weeks. Patient states that he has spot on his lung that requires heavy amounts of opiate pain medicine. Patient states that his last bowel movement was yesterday but it was small in nature. On multi
--- NOTE | 2021-12-10 13:37 | PC.NURSE ---
C/O ABD PAIN, N/V X 1 MONTH. pT REPORTS HE HAS APOINTMENT WITH PCP ON TUESDAY FOR THIS PROBLEM BUT STATES I CAN'T TAKE IT ANYMORE.
[2021-12-10] MEDS: SODIUM CHLORIDE 0.9% IV 1,000 ML 999 ML IV CONT (13:46)
[2021-12-10] MEDS: ONDANSETRON INJ 4 MG/2 ML VIAL IV PUSH (13:46)
[2021-12-10 13:58] LABS: Basophils Absolute Auto 0.1 K/mm3 (0.0-0.1); Basophils Percent Auto 0.7 % (0.2-1.2); Eosinophils Absolute Auto 0.1 K/mm3 (0-0.3); Eosinophils Percent Auto 0.9 % (0-4.4); Hematocrit 32.7 % (42.0-52.0); Hemoglobin 10.6 g/dL (14.0-18.0); Immature Granulocyte Absolute 0.16 K/mm3 (0.00-0.031); Lymphocytes Absolute Auto 1.72 K/mm3 (0.9-3.2); Lymphocytes Percent Auto 11.3 % (18.3-44.2); Mean Corpuscular HGB Conc 32.4 g/dl (32-36); Mean Corpuscular Hemoglobin 30.3 pg (26-34); Mean Corpuscular Volume 93.4 fl (80-100); Mean Platelet Volume 9.7 fl (7.4-10.4); Monocytes Absolute Auto 1.4 K/mm3 (0.1-0.6); Monocytes Percent Auto 9.1 % (2.6-8.5); Neutrophils Absolute Auto 11.7 K/mm3 (1.3-6.7); Platelet Count Result 429 k/mm3 (150-375); Red Cell Distribution Width 19.6 % (11.5-14.5); White Blood Count 15.2 K/mm3 (4.5-10.0)
[2021-12-10 14:06] LABS: Alanine Aminotransferase 100 U/L (4-50); Albumin Level 3.7 g/dL (3.5-5.1); Alkaline Phosphatase 423 U/L (38-126); Anion Gap 9 mmol/L (8-16); Aspartate Amino Transferase 103 U/L (17-59); Bilirubin,Total 0.7 mg/dL (0.2-1.3); Blood Urea Nitrogen 43 mg/dL (9-20); Calcium 8.3 mg/dL (8.4-10.2); Carbon Dioxide 22 mmol/L (22-30); Chloride 102 mmol/L (98-107); Estimated Glomerular Filt Rate > 60; Glucose 171 mg/dL (65-110); Lipase 224 U/L (23-300); Potassium 4.7 mmol/L (3.4-5.0); Sodium 133 mmol/L (137-145)
[2021-12-10 14:30] VITALS: BP 138/78; PULSE 84; RESP 20; TEMP 36.8; O2SAT 96
[2021-12-10 14:41] LABS: Ethanol < 10 mg/dL (<10)
[2021-12-10 15:09] LABS: Add Urine Microscopic? YES; Appearance Urine Clear (Clear); Bacteria Urine Trace /hpf; Bilirubin Urine Negative (Negative); Blood Urine Negative (Negative); Color Urine Yellow (Yellow); Glucose Urine UA Negative (Negative); Ketones Urine Negative (Negative); Leukocyte Esterase Ur Trace LEU/UL (Negative); Mucus Urine Rare /lpf; Nitrate Urine Positive (Negative); Protein Urine Negative (Negative); RBC Urine 0-2 /hpf (0-2); Urobilinogen Urine Negative mg/dL (<2.0); WBC Urine 0-3 /hpf
[2021-12-10 15:15] LABS: Specific Grav Ur 1.036 (1.001-1.035)
[2021-12-10 15:30] LABS: Amphetamine Screen Urine Negative (Negative); Barbiturate Screen Urine Negative (Negative); Benzodiazepines Screen Urine Positive (Negative); Cannabinoid Screen Urine Negative (Negative); Cocaine Screen Urine Negative (Negative); Methadone Screen Urine Negative (Negative); Opiate Screen Urine Negative (Negative); Phencyclidine Screen Urine Negative (Negative)
[2021-12-10 15:36] VITALS: BP 134/68; PULSE 80; RESP 18; TEMP 36.8; O2SAT 95
[2021-12-10] MEDS: MAGNESIUM CITRATE 300 ML BTL PO (15:38)
== END 2021-12-10 15:38 | disposition home or self-care (01) ==
PROVIDERS: Emergency Provider Nurse Practitioner Family
DX: K59.03 Drug induced constipation (principal); J44.9 Chronic obstructive pulmonary disease, unspecified; E11.9 Type 2 diabetes mellitus without complications; M79.7 Fibromyalgia; I25.2 Old myocardial infarction; Z86.73 Personal history of transient ischemic attack (TIA), and cerebral infarction without residual deficits; Z86.718 Personal history of other venous thrombosis and embolism; Z86.19 Personal history of other infectious and parasitic diseases; F17.290 Nicotine dependence, other tobacco product, uncomplicated; K80.20 Calculus of gallbladder without cholecystitis without obstruction; K74.60 Unspecified cirrhosis of liver; N28.1 Cyst of kidney, acquired; M48.56XA Collapsed vertebra, not elsewhere classified, lumbar region, initial encounter for fracture; R93.3 Abnormal findings on diagnostic imaging of other parts of digestive tract
CPT/HCPCS: 36415; 74177; 80053; 80307; 81001; 83690; 85025; 96361; 96374; 99284; A9270; J2405; J7030; Q9967

== ENCOUNTER 2021-12-15 15:17 | Outpatient (CLI) | payer OTHER, SELFPAY ==
[2021-12-15 15:51] LABS: Alanine Aminotransferase 106 U/L (4-50); Albumin Level 3.3 g/dL (3.5-5.1); Alkaline Phosphatase 349 U/L (38-126); Anion Gap 7 mmol/L (8-16); Aspartate Amino Transferase 102 U/L (17-59); Bilirubin,Total 0.3 mg/dL (0.2-1.3); Blood Urea Nitrogen 33 mg/dL (9-20); Calcium 7.8 mg/dL (8.4-10.2); Carbon Dioxide 21 mmol/L (22-30); Chloride 101 mmol/L (98-107); Estimated Glomerular Filt Rate > 60; Glucose 156 mg/dL (65-110); Potassium 4.6 mmol/L (3.4-5.0); Sodium 129 mmol/L (137-145)
[2021-12-21 17:07] LABS: Alpha Fetoprotein Tumor Marker 6.8 ng/mL (<6.1)
== END 2021-12-15 15:18 | disposition home or self-care (01) ==
LOC: ANHLAB 15:19
PROVIDERS: Visit Provider Internal Medicine Gastroenterology
DX: K74.60 Unspecified cirrhosis of liver (principal)
CPT/HCPCS: 36415; 80053; 82105

== ENCOUNTER 2021-12-21 00:07 | Day surgery (SDC) | payer OTHER, SELFPAY ==
[2021-12-17 10:31] VITALS: BMI 25.0
--- NOTE | 2021-12-20 11:33 | PM.HPGS ---
History of Present Illness History of Present Illness Consent: Risks, benefits, and alternatives have been discussed and questions answered. Patient agrees to proceed with procedure. Chief complaint: vomiting Narrative: Marshall Nix III is a 50 year old male who has multiple medical problems. He Was recently hospitalized at [facility] with a lung abscess. He was told that [facility] would need [facility] but he apparently signed out against medical advise. He sees me now because he has lost 60 lb in the last 6 weeks. He, and his mother state that he cannot eat anything but cereal and yogurt. He is frequently nauseated and has had some vomiting. Then they added that he has gained 15 lb back because of the cereal. He does take Advil 6 or 8 tablets per day because he has severe sciatica. He had initially stated he takes no medications, but we did learn that he is on something for diabetes. His mother believes that he has had some small strokes because he at times is slurred when he tries to speak. Review of Systems Review of Systems: All systems reviewed & are unremarkable except as noted in HPI and below PMFSH Past Medical History Medical History COPD (chronic obstructive pulmonary disease) Diabetes DVT (deep venous thrombosis) Fibromyalgia H/O: HTN (hypertension) Hepatitis B Myocardial infarction Pancreatitis TIA (transient ischemic attack) Trigeminal neuralgia Surgical History Surgical History History of nasal surgery Family History Family History Mother Breast cancer Social History Social History Social History: History of alcohol abuse Smoking status: Current every day smoker Tobacco type: cigarettes Alcohol intake: former Substance use: current Substance use type: marijuana Living arrangements: alone Gender identity (if verbalized by the patient): Male Sexual Orientation (if Verbalized by the Patient): Straight or Heterosexual Spiritual care concerns: No Meds Home Medications and Allergies Home Medications Medication Instructions Recorded Confirmed Type ibuprofen 200 mg capsule 600 mg PO Q6H PRN 12/15/21 12/17/21 History citalopram 20 mg PO DAILY 12/17/21 12/17/21 History ibuprofen-diphenhydramine cit 1 cap PO HS PRN 12/17/21 12/17/21 History [Advil PM] insulin glargine [Basaglar KwikPen 20 unit SUBCUT DAILY 12/17/21 12/17/21 History U-100 Insulin] Allergies Allergy/AdvReac Type Severity Reaction Status Date / Time latex Allergy Unknown Blister Verified 12/21/21 12:13 Penicillins Allergy Unknown Nausea and Verified 12/21/21 12:13 Vomiting morphine AdvReac Nausea Verified 12/21/21 12:13 Exam Const: General: alert Orientation/consciousness: patient oriented x3 Resp: Auscultation: clear to auscultation bilaterally Cardio: Rhythm: regular rhythm GI: GI Palp: Yes Soft to palpation and No Tenderness to palpation present (GI) Neuro: General: patient oriented x3 Assessment and Plan Assessment and plan (1) Nausea and vomiting: Code(s): R11.2 - Nausea with vomiting, unspecified Status: Acute Assessment and Plan: EGD with possible biopsy or dilatation or cautery.
[2021-12-21 12:14] VITALS: BP 132/84; PULSE 92; RESP 20; TEMP 36.2; O2SAT 100; BMI 25.6
[2021-12-21 12:16] LABS: Glucose Point of Care 172 mg/dl (65-105)
[2021-12-21] MEDS: LACTATED RINGERS 1,000 ML 150 ML IV CONT (12:16)
--- NOTE | 2021-12-21 12:55 | WPDANESEPPF ---
Anes - Initial Pre Proc Eval Procedure: Operation Date: 12/21/21 14:00 Proposed Procedures p Esophagogastroduodenoscopy - Carlos Santiago MD Date/Time: 12/21/21 12:55 Surgeon: Carlos Santiago MD Pre Op Diagnosis: vomiting Patient Data Age: 50 Gender: M Height: 1.6 m Weight: 65.6 kg Last Vital Signs Temp 97.2 F L 12/21/21 12:14 Pulse 92 12/21/21 12:14 Resp 20 12/21/21 12:14 BP 132/84 12/21/21 12:14 Pulse Ox 100 12/21/21 12:14 Allergies Allergy/AdvReac Type Severity Reaction Status Date / Time latex Allergy Unknown Blister Verified 12/21/21 12:13 Penicillins Allergy Unknown Nausea and Verified 12/21/21 12:13 Vomiting morphine AdvReac Nausea Verified 12/21/21 12:13 Home Medications Medication Instructions Recorded Confirmed Type ibuprofen 200 mg capsule 600 mg PO Q6H PRN 12/15/21 12/17/21 History citalopram 20 mg PO DAILY 12/17/21 12/17/21 History ibuprofen-diphenhydramine cit 1 cap PO HS PRN 12/17/21 12/17/21 History [Advil PM] insulin glargine [Basaglar KwikPen 20 unit SUBCUT DAILY 12/17/21 12/17/21 History U-100 Insulin] Laboratory Tests 12/21/21 12:14 POC Capillary Glucose 172 mg/dl H mg/dl (65-105) Patient hx anesthesia problems: none Family hx anesthesia problems: none Results Review: All pre-operative results and documents have been reviewed as part of the pre-operative evaluation. [facility] Past Medical History Medical History COPD (chronic obstructive pulmonary disease) Diabetes DVT (deep venous thrombosis) Fibromyalgia H/O: HTN (hypertension) Hepatitis B Myocardial infarction Pancreatitis TIA (transient ischemic attack) Trigeminal neuralgia Surgical History Surgical History History of nasal surgery Family History Family History Mother Breast cancer Social History Social History Social History: History of alcohol abuse Smoking status: Current every day smoker Tobacco type: cigarettes Alcohol intake: former Substance use: current Substance use type: marijuana Living arrangements: alone Gender identity (if verbalized by the patient): Male Sexual Orientation (if Verbalized by the Patient): Straight or Heterosexual Spiritual care concerns: No Anes - Eval Final PreProcedure Day of Procedure 12/21/21 12:55 Patient weight: overweight Heart: regular rate and rhythm Lungs: clear to auscultation Airway: Mallampati scale class III Neurological: alert and oriented Last oral intake: >/= 8 hours ASA classification: III Emergent: no Anesthetic plan: proceed Anesthesia type and monitoring: general GIVS and standard monitoring Results Review: All pre-operative results and documents have been reviewed as part of the pre-operative evaluation. Informed Consent: The patient's anesthetic plan and its attendant risks and benefits were discussed with the patient/family/POA. Questions were solicited and answers provided to the satisfaction of the patient/family/POA.
[2021-12-21 13:15] VITALS: BP 113/76; PULSE 85; RESP 19; O2SAT 100
[2021-12-21 13:25] VITALS: BP 136/96; PULSE 83; RESP 25; O2SAT 99
[2021-12-21 13:32] LABS: Glucose Point of Care 116 mg/dl (65-105)
[2021-12-21 13:35] VITALS: BP 138/93; PULSE 87; RESP 20; O2SAT 100
== END 2021-12-21 13:55 | disposition home or self-care (01) ==
PROVIDERS: Visit Provider Internal Medicine Gastroenterology
PROC: 0DJ08ZZ Inspection of Upper Intestinal Tract, Via Natural or Artificial Opening Endoscopic (ICD-10-PCS; CPT 43235; principal; 2021-12-21 14:00)
DX: R11.2 Nausea with vomiting, unspecified (principal); K22.10 Ulcer of esophagus without bleeding; K29.70 Gastritis, unspecified, without bleeding; I10 Essential (primary) hypertension; I25.2 Old myocardial infarction; J44.9 Chronic obstructive pulmonary disease, unspecified; E11.9 Type 2 diabetes mellitus without complications; M79.7 Fibromyalgia; M54.30 Sciatica, unspecified side; Z86.718 Personal history of other venous thrombosis and embolism; Z86.73 Personal history of transient ischemic attack (TIA), and cerebral infarction without residual deficits
CPT/HCPCS: 43239; 82948; 87081; 88305; J2704; J7120

== ENCOUNTER 2022-02-14 15:36 | Inpatient (IN) | payer OTHER, SELFPAY ==
[2022-02-14] VITALS (24 sets, daily range): BP systolic 96–131; BP diastolic 58–81; PULSE 83–107; RESP 13–21; TEMP 36.6–37; O2SAT 95–100; BMI 33.2
--- NOTE | ~2022-02-14 | US_ITS ---
US abdomen limited INDICATION: Elevated liver function tests. PROCEDURE: Realtime right upper abdominal ultrasound. COMPARISON: No prior studies for comparison. FINDINGS: The pancreas is normal without focal mass or pancreatic ductal dilation. Liver echotexture is increased and heterogeneous, consistent with fatty infiltration. Liver surface is irregular, cons istent with cirrhosis. There is normal directional flow in the portal vein. There is an echogenic foci at the gallbladder neck without definitive shadowing, suspicious for stone . No gallbladder wall thickening or pericholecystic fluid. Common bile duct measures 3 mm. No sonog raphic Neri's sign. There is right renal cyst measuring 1.8 cm at the upper pole. IMPRESSION: 1: Cirrhosis of the liver with fatty infiltration. 2: Possible cholelithiasis located at the gallbladder neck. Reviewed, dictated and finalized at location D.
[2022-02-14] MEDS: SODIUM CHLORIDE 0.9% IV 1,000 ML 999 ML IV CONT (16:34)
[2022-02-14 16:39] LABS: Basophils Absolute Auto 0.1 K/mm3 (0.0-0.1); Basophils Percent Auto 0.4 % (0.2-1.2); Eosinophils Percent Auto 0.3 % (0-4.4); Hematocrit 30.7 % (42.0-52.0); Hemoglobin 9.6 g/dL (14.0-18.0); Immature Granulocyte Absolute 0.08 K/mm3 (0.00-0.031); Immature Granulocyte Percent A 0.7 % (0-0.5); Lymphocytes Absolute Auto 1.58 K/mm3 (0.9-3.2); Lymphocytes Percent Auto 13.6 % (18.3-44.2); Mean Corpuscular HGB Conc 31.3 g/dl (32-36); Mean Corpuscular Hemoglobin 23.7 pg (26-34); Mean Corpuscular Volume 75.8 fl (80-100); Mean Platelet Volume 9.9 fl (7.4-10.4); Monocytes Absolute Auto 1.3 K/mm3 (0.1-0.6); Monocytes Percent Auto 11.3 % (2.6-8.5); Neutrophils Absolute Auto 8.6 K/mm3 (1.3-6.7); Neutrophils Percent Auto 73.7 % (45.5-73.1); Platelet Count Result 231 k/mm3 (150-375); Red Blood Count 4.05 M/mm3 (4.6-6.20); Red Cell Distribution Width 19.1 % (11.5-14.5); White Blood Count 11.6 K/mm3 (4.5-10.0)
[2022-02-14 16:49] LABS: Alanine Aminotransferase 133 U/L (6-50); Albumin Level 3.7 g/dL (3.5-5.1); Alkaline Phosphatase 314 U/L (38-126); Anion Gap 10 mmol/L (8-16); Aspartate Amino Transferase 125 U/L (17-59); Bilirubin,Total 1.3 mg/dL (0.2-1.3); Blood Urea Nitrogen 55 mg/dL (9-20); Calcium 7.8 mg/dL (8.4-10.2); Carbon Dioxide 16 mmol/L (22-30); Chloride 96 mmol/L (98-107); Estimated CRCL calculation 29 ml/min; Estimated Glomerular Filt Rate 26; Glucose 269 mg/dL (65-110); Potassium 5.8 mmol/L (3.4-5.0); Sodium 122 mmol/L (137-145)
[2022-02-14 17:06] LABS: Appearance Urine Cloudy (Clear); Bilirubin Urine Negative (Negative); Blood Urine 1+ (Negative); Color Urine Yellow (Yellow); Glucose Urine UA Negative (Negative); Ketones Urine Negative (Negative); Leukocyte Esterase Ur 2+ LEU/UL (Negative); Nitrate Urine Negative (Negative); Protein Urine 1+ mg/dL (Negative); Urobilinogen Urine 0.2 mg/dL (<2.0)
[2022-02-14 17:10] LABS: Add Urine Microscopic? YES; Amorphous Sediment Urine Few; Bacteria Urine Trace /hpf; Mucus Urine Rare /lpf; Squamous Epithelial Cell Urine Rare /hpf (Few); WBC Urine >75 /hpf
--- NOTE | 2022-02-14 17:29 | ED.GENADULT ---
HPI - General Adult General Chief complaint: Unspecified Stated complaint: not feeling well Time Seen by Provider: 02/14/22 15:59 History of Present Illness HPI narrative: 51-year-old male presenting to the emergency department for evaluation of dehydration and tachycardia. Patient states yesterday he feels that he was given methamphetamine. Patient states he does use methamphetamine but not that much . Patient states that yesterday morning he drank something that had been spike with methamphetamine and patient states he spent the majority of the day walking. Patient went to a stranger's house today and complained of feeling tired. Patient arrived by EMS. Patient denies any chest pain or shortness of breath. Reports feeling thirsty. Patient is complaining of sciatic pain. Related Data Home Medications Medication Instructions Recorded Confirmed ibuprofen 200 mg capsule 600 mg PO Q6H PRN Pain 12/15/21 12/17/21 citalopram 20 mg tablet 20 mg PO DAILY 12/17/21 12/17/21 ibuprofen-diphenhydramine citrate 1 cap PO HS PRN Sleep 12/17/21 12/17/21 200 mg-38 mg tablet (Advil PM) insulin glargine 100 unit/mL (3 20 unit subcut DAILY 12/17/21 12/17/21 mL) subcutaneous pen (Basaglar KwikPen U-100 Insulin) Allergies Allergy/AdvReac Type Severity Reaction Status Date / Time latex Allergy Unknown Blister Verified 12/21/21 12:13 Penicillins Allergy Unknown Nausea and Verified 12/21/21 12:13 Vomiting Review of Systems Review of Systems: CONSTITUTIONAL: Denies fever, chills, or sweats. EYES: Denies visual changes, redness, or discharge. ENT: Denies rhinorrhea, congestion, sore throat, or otalgia. CARDIOVASCULAR: Denies chest pain, palpitations, or edema. RESPIRATORY: Denies cough or dyspnea. GASTROINTESTINAL: Denies abdominal pain, nausea, vomiting, or diarrhea. GENITOURINARY: Denies dysuria or hematuria. SKIN: Denies rash or itching. MUSCULOSKELETAL: Sciatic pain NEUROLOGIC: Denies headache, numbness, or weakness. [facility] Past Medical History Medical History COPD (chronic obstructive pulmonary disease) Diabetes DVT (deep venous thrombosis) Fibromyalgia H/O: HTN (hypertension) Hepatitis B Myocardial infarction Pancreatitis TIA (transient ischemic attack) Trigeminal neuralgia Surgical History Surgical History History of nasal surgery Family History Family History Mother Breast cancer Social History Social History Social History: History of alcohol abuse Smoking status: Current every day smoker Tobacco type: cigarettes Alcohol intake: former Substance use: current Substance use type: marijuana Gender identity (if verbalized by the patient): Male Sexual Orientation (if Verbalized by the Patient): Straight or Heterosexual Spiritual care concerns: No Exam Narrative: APPEARANCE: Well appearing, no pain, no distress, well-nourished. HEAD: normocephalic, atraumatic. EYES: PERRLA/EOMI, conjunctivae clear. NOSE: Normal no drainage THROAT: Pharynx clear, no exudate. NECK: Supple. No adenopathy, no masses. RESPIRATORY: Airway patent, respirations nonlabored. Clear to auscultation bilaterally, no rales, rhonchi, wheezing. CARDIOVASCULAR: Regular rate and rhythm without murmurs rubs or gallops. ABDOMINAL: Soft, nontender, nondistended, normal bowel sounds MUSCULOSKELETAL: Moves all extremities. Strength/ROM intact, No edema, No calf tenderness. NEURO: Alert. Cranial nerves II through XII intact. Grossly intact SKIN: Warm, dry. Normal Color PSYCHIATRIC: Anxious affect. Psychomotor agitation Course Course Emergency Course: Patient does have multiple electrolyte abnormalities. Patient's sodium was 122. Potassium 5.8. ANIRUDH with a creatinine of 2.6 compared to his baseline of 0.9. P
[2022-02-14] MEDS: SODIUM CHLORIDE 0.9% IV 1,000 ML 400 ML IV CONT (17:30)
[2022-02-14 17:37] LABS: Barbiturate Screen Urine Negative (Negative); Benzodiazepines Screen Urine Positive (Negative)
[2022-02-14 17:46] LABS: Cannabinoid Screen Urine Negative (Negative); Cocaine Screen Urine Negative (Negative); Methadone Screen Urine Negative (Negative); Opiate Screen Urine Negative (Negative); Phencyclidine Screen Urine Negative (Negative)
[2022-02-14 17:52] LABS: Ethanol < 10 mg/dL (<10)
[2022-02-14 17:54] LABS: Creatine Kinase 654 U/L (55-170)
[2022-02-14 18:12] LABS: Amphetamine Screen Urine Positive (Negative)
[2022-02-14 19:28] LABS: Anion Gap 10 mmol/L (8-16); Blood Urea Nitrogen 52 mg/dL (9-20); Calcium 7.3 mg/dL (8.4-10.2); Carbon Dioxide 15 mmol/L (22-30); Chloride 100 mmol/L (98-107); Estimated CRCL calculation 34 ml/min; Estimated Glomerular Filt Rate 31; Glucose 222 mg/dL (65-110); Potassium 4.5 mmol/L (3.4-5.0); Sodium 125 mmol/L (137-145)
--- NOTE | 2022-02-14 19:49 | PM.IMHP ---
H&P: HPI History of Present Illness Date/Time: Patient was placed observation status for expected length of stay less than 23 hours for management, will plan to re-evaluate tomorrow for improvement. 02/14/22 19:49 Chief Complaint: Altered mental status Narrative: Mr. Nix is a 51-year-old gentleman who presented to emergency room via EMS after being found in somebody's yard and complaining of feeling tired. At this point time patient is not able to give a full history because he is confused and not making any sense. Per emergency room records patient had told them that he had been given methamphetamines yesterday and he did take the methamphetamines, but he did not ?take that much?. Patient states that he occasionally does do methamphetamines, and he only ingest some orally. Patient states he does not do any other drugs. When asked about past medical history patient cannot relate any past medical history. Per emergency room records patient states he was drinking alcohol yesterday, but I am unable to tell if patient did drink any alcohol because he does not recall. Patient states he does feel extremely thirsty at this time. Per previous medical records patient does have a history of COPD, diabetes mellitus, DVT, fibromyalgia, hypertension, hepatitis-B, TIA, pancreatitis, and trigeminal neuralgia. Review of Systems Review of Systems: I am unable to obtain review of systems from patient secondary to confusion and altered mental status. [facility] Past Medical History Medical History COPD (chronic obstructive pulmonary disease) Diabetes DVT (deep venous thrombosis) Fibromyalgia H/O: HTN (hypertension) Hepatitis B Myocardial infarction Pancreatitis TIA (transient ischemic attack) Trigeminal neuralgia Surgical History Surgical History History of nasal surgery Family History Family History Mother Breast cancer Social History Social History Social History: History of alcohol abuse Smoking status: Current every day smoker Tobacco type: cigarettes Alcohol intake: former Substance use: current Substance use type: marijuana Gender identity (if verbalized by the patient): Male Sexual Orientation (if Verbalized by the Patient): Straight or Heterosexual Spiritual care concerns: No Meds Home Medications and Allergies Home Medications Medication Instructions Recorded Confirmed Type ibuprofen 200 mg capsule 600 mg PO Q6H PRN Pain 12/15/21 12/17/21 History citalopram 20 mg tablet 20 mg PO DAILY 12/17/21 12/17/21 History ibuprofen-diphenhydramine citrate 1 cap PO HS PRN Sleep 12/17/21 12/17/21 History 200 mg-38 mg tablet (Advil PM) insulin glargine 100 unit/mL (3 20 unit subcut DAILY 12/17/21 12/17/21 History mL) subcutaneous pen (Basaglar KwikPen U-100 Insulin) pantoprazole 40 mg tablet,delayed 40 mg PO BID #60 tabs 12/21/21 Rx release Allergies Allergy/AdvReac Type Severity Reaction Status Date / Time latex Allergy Unknown Blister Verified 12/21/21 12:13 Penicillins Allergy Unknown Nausea and Verified 12/21/21 12:13 Vomiting Vital Signs Vital Signs - 24 hr 02/14/22 15:39 02/14/22 15:48 02/14/22 15:40 Temperature 37.0 C Pulse Rate 101 H 102 H Respiratory Rate 20 20 16 Blood Pressure 96/61 L Pulse Oximetry 96 96 97 Oxygen Delivery Room Air 02/14/22 15:41 02/14/22 15:45 02/14/22 16:00 Temperature Pulse Rate 102 H 103 H 107 H Respiratory Rate 19 21 H 20 Blood Pressure 96/61 L Pulse Oximetry 97 100 Oxygen Delivery 02/14/22 16:01 02/14/22 16:22 02/14/22 16:34 Temperature Pulse Rate 102 H 107 H 104 H Respiratory Rate 17 19 18 Blood Pressure 107/75 131/75 Pulse Oximetry 98 98 Oxygen Delivery 02/14/22 16:35 02/14/22 16:49
[2022-02-14 21:04] LABS: Glucose Point of Care 181 mg/dl (65-105)
--- NOTE | 2022-02-14 21:08 | ADMGEN ---
This patient, Marshall Nix III, was admitted to IMU Room 232-01 at 2044. Patient/family oriented to hospital policies and general routines including ID bracelet, bed and alarms, visiting hours, pain management, procedures, bathroom and other care routines, personal items, smoking policy, room service/diet, and visiting hours. Information on how to activate the Rapid Response Team has been discussed. Patient/Family are encouraged to report perceived risks to care and to ask questions if they do not understand what they are told or what they should do.
[2022-02-14 21:09] LABS: Chloride 100 mmol/L (98-107)
[2022-02-14] MEDS: SODIUM CHLORIDE 0.9% IV 1,000 ML 100 ML IV CONT (21:09)
[2022-02-14 21:13] LABS: Alanine Aminotransferase 121 U/L (6-50); Albumin Level 3.5 g/dL (3.5-5.1); Alkaline Phosphatase 280 U/L (38-126); Anion Gap 8 mmol/L (8-16); Aspartate Amino Transferase 113 U/L (17-59); Bilirubin,Total 0.8 mg/dL (0.2-1.3); Blood Urea Nitrogen 50 mg/dL (9-20); Calcium 7.4 mg/dL (8.4-10.2); Carbon Dioxide 18 mmol/L (22-30); Creatine Kinase 825 U/L (55-170); Estimated CRCL calculation 36 ml/min; Estimated Glomerular Filt Rate 33; Glucose 182 mg/dL (65-110); Potassium 4.2 mmol/L (3.4-5.0); Sodium 126 mmol/L (137-145)
[2022-02-14] MEDS: HEPARIN SODIUM 5,000 UNITS/ML VIAL 5000 UNITS SUB-Q (21:55)
[2022-02-15] VITALS (7 sets, daily range): BP systolic 114–124; BP diastolic 56–76; PULSE 75–113; RESP 16–18; TEMP 36.2–36.7; O2SAT 91–99
[2022-02-15] MEDS: LORazepam (*CRX) 0.5 MG TABLET PO ×2 (04:26→21:14)
[2022-02-15 05:01] LABS: Basophils Absolute Auto 0.1 K/mm3 (0.0-0.1); Basophils Percent Auto 0.7 % (0.2-1.2); Eosinophils Absolute Auto 0.4 K/mm3 (0-0.3); Hematocrit 29.4 % (42.0-52.0); Hemoglobin 9.1 g/dL (14.0-18.0); Immature Granulocyte Absolute 0.04 K/mm3 (0.00-0.031); Immature Granulocyte Percent A 0.6 % (0-0.5); Lymphocytes Absolute Auto 1.93 K/mm3 (0.9-3.2); Lymphocytes Percent Auto 27.1 % (18.3-44.2); Mean Corpuscular Hemoglobin 23.6 pg (26-34); Mean Corpuscular Volume 76.2 fl (80-100); Mean Platelet Volume 9.9 fl (7.4-10.4); Monocytes Absolute Auto 1.2 K/mm3 (0.1-0.6); Neutrophils Absolute Auto 3.5 K/mm3 (1.3-6.7); Neutrophils Percent Auto 48.6 % (45.5-73.1); Platelet Count Result 184 k/mm3 (150-375); Red Blood Count 3.86 M/mm3 (4.6-6.20); White Blood Count 7.1 K/mm3 (4.5-10.0)
[2022-02-15 05:35] LABS: Alanine Aminotransferase 112 U/L (6-50); Alkaline Phosphatase 259 U/L (38-126); Anion Gap 4 mmol/L (8-16); Aspartate Amino Transferase 107 U/L (17-59); Bilirubin,Total 0.6 mg/dL (0.2-1.3); Blood Urea Nitrogen 38 mg/dL (9-20); Calcium 7.1 mg/dL (8.4-10.2); Carbon Dioxide 21 mmol/L (22-30); Chloride 104 mmol/L (98-107); Creatine Kinase 705 U/L (55-170); Estimated CRCL calculation 49 ml/min; Estimated Glomerular Filt Rate 49; Glucose 122 mg/dL (65-110); Potassium 3.5 mmol/L (3.4-5.0); Sodium 129 mmol/L (137-145)
[2022-02-15] MEDS: INSULIN GLARGINE (*BKC) 100 UNITS/ML 20 UNITS SUB-Q (09:58)
[2022-02-15] MEDS: CITALOPRAM HYDROBROMIDE 20 MG TABLET PO (10:06)
[2022-02-15] MEDS: HEPARIN SODIUM 5,000 UNITS/ML VIAL 5000 UNITS SUB-Q (10:06)
[2022-02-15 10:07] LABS: Alanine Aminotransferase 118 U/L (6-50); Albumin Level 3.3 g/dL (3.5-5.1); Alkaline Phosphatase 254 U/L (38-126); Anion Gap 6 mmol/L (8-16); Aspartate Amino Transferase 123 U/L (17-59); Bilirubin,Total 0.8 mg/dL (0.2-1.3); Blood Urea Nitrogen 34 mg/dL (9-20); Calcium 7.2 mg/dL (8.4-10.2); Carbon Dioxide 19 mmol/L (22-30); Chloride 103 mmol/L (98-107); Creatine Kinase 667 U/L (55-170); Estimated CRCL calculation 57 ml/min; Estimated Glomerular Filt Rate 58; Glucose 126 mg/dL (65-110); Potassium 4.1 mmol/L (3.4-5.0); Sodium 128 mmol/L (137-145)
[2022-02-15] MEDS: SODIUM CHLORIDE 0.9% IV 1,000 ML 100 ML IV CONT ×2 (12:12→23:15)
[2022-02-15] MEDS: NICOTINE (*PBKC) 4 MG GUM PO ×4 (12:13→21:16)
--- NOTE | 2022-02-15 12:16 | WPDGICN ---
Assessment and Plan Assessment and plan (1) Dysphagia: Code(s): R13.10 - Dysphagia, unspecified Status: Acute Assessment and Plan: a couple months ago he was found on endoscopy to have severe ulceration of his esophagus with Long smooth stricturing. He took pantoprazole for 1 month a states that the pills did not help. he failed to get them refilled no schedule him for EGD to be done tomorrow. He has been fed today are a (2) Nausea and vomiting: Code(s): R11.2 - Nausea with vomiting, unspecified Status: Acute Assessment and Plan: He is no longer vomiting but he feels that is hard eat anything solid. (3) Acute hyponatremia: Code(s): E87.1 - Hypo-osmolality and hyponatremia Status: Acute Assessment and Plan: Sodium was 128 on admission. (4) Altered mental status: Code(s): R41.82 - Altered mental status, unspecified Status: Acute Assessment and Plan: He was very confused on admission apparently had been using methamphetamines and was found in the neighbor's yard. Now he is coherent but tremulous (5) ANIRUDH (acute kidney injury): Code(s): N17.9 - Acute kidney failure, unspecified Status: Acute Assessment and Plan: creatinine 2.6 and BUN 55 at admission. GI Consult Note Consult date/time: 02/15/22 12:16 HPI: Marshall Nix III is a 51 year old male Who was admitted after having been found on the ground after apparently he took some meth amphetamine. He was confused on admission. He tells me that he may have had a small stroke. I had seen him in the office a few months ago regarding chronic nausea and vomiting and poor oral intake. At that time was accompanied by his mother who provided additional history stating that he was not able to eat much of anything except cereal. Despite that he had actually gained about 15 lb after having previously lost a fair bit of weight. This all was within a few weeks of him being seen at [facility] where he had a lung abscess. Apparently was going to be transferred to 1 of the [facility] but he signed out against medical advice. I then performed endoscopy on him in December which revealed extensive ulceration of the lower 2/3 of the esophagus. I have started him on pantoprazole. He is no longer taking that but he states that the pills did no good he points to his right subclavicular area and states that it is uncomfortable when he eats and food will go down. Review of Systems Review of Systems: All systems reviewed & are unremarkable except as noted in HPI and below PMFSH Past Medical History Medical History COPD (chronic obstructive pulmonary disease) Diabetes DVT (deep venous thrombosis) Fibromyalgia H/O: HTN (hypertension) Hepatitis B Myocardial infarction Pancreatitis TIA (transient ischemic attack) Trigeminal neuralgia Surgical History Surgical History History of nasal surgery Family History Family History Mother Breast cancer Social History Social History Social History: History of alcohol abuse Smoking status: Former smoker Tobacco type: cigarettes Alcohol intake: former Substance use: current Substance use type: marijuana, crack/cocaine and methamphetamine Gender identity (if verbalized by the patient): Male Sexual Orientation (if Verbalized by the Patient): Straight or Heterosexual Spiritual care concerns: No Meds Home Medications and Allergies Home Medications Medication Instructions Recorded Confirmed Type ibuprofen 200 mg capsule 600 mg PO Q6H PRN Pain 12/15/21 02/14/22 History citalopram 20 mg tablet 20 mg PO DAILY 12/17/21 02/14/22 History ibuprofen-diphenhydramine citrate 1 cap PO HS PRN Sleep
[2022-02-15 12:22] LABS: Glucose Point of Care 190 mg/dl (65-105)
--- NOTE | 2022-02-15 12:26 | PM.IMPN ---
Progress Note: A&P Assessment and Plan (1) Altered mental status: Code(s): R41.82 - Altered mental status, unspecified Status: Acute Assessment and Plan: Most likely secondary to ingestion of methamphetamines. Improved (2) Acute hyponatremia: Code(s): E87.1 - Hypo-osmolality and hyponatremia Status: Acute Assessment and Plan: Improved, monitor electrolytes. Multifactorial but likely related decreased p.o. intake and dehydration. (3) Acute hyperkalemia: Code(s): E87.5 - Hyperkalemia Status: Acute Assessment and Plan: Monitor (4) ANIRUDH (acute kidney injury): Code(s): N17.9 - Acute kidney failure, unspecified Status: Acute Assessment and Plan: Secondary to dehydration most likely. IV fluids, monitor labs. (5) Acute UTI: Code(s): N39.0 - Urinary tract infection, site not specified Status: Acute Assessment and Plan: IV Rocephin (6) Elevated CK: Code(s): R74.8 - Abnormal levels of other serum enzymes Status: Acute Assessment and Plan: Secondary dehydration and methamphetamine use. Continue IV fluids and supportive care. Trend CK. (7) Dysphagia: Code(s): R13.10 - Dysphagia, unspecified Status: Acute Assessment and Plan: Consul GI CT scan from prior hospitalizations noted. This is a chronic issue secondary to decreased p.o. intake he is having some electrolyte abnormalities. Subjective Date/time seen: 02/15/22 12:26 No new complaints, feeling somewhat better. Ongoing complaints of dysphagia and trouble swallowing and feeling like things are getting stuck in his throat. Review of Systems Review of Systems: 10 point ROS negative except as stated in HPI / Subjective Exam Narrative: Constitutional: Patient is well-nourished in no acute distress. Patient is alert and oriented x1-2 HEENT: Moist mucous membranes. No scleral icterus. No lymphadenopathy. Neck: No carotid bruits noted no JVD noted Lungs: Lung sounds are clear to auscultation bilaterally. No accessory muscle use. No rhonchi, rales, or wheezes noted. Cardiovascular: Apical pulse is regular rhythm and tachycardic S1-S2 noted, no S3 or S4 noted. No gallops, murmurs, or rubs noted. Abdomen: Soft, round, and nontender. No palpable masses. Extremities: No edema. Nontender. Skin: No rashes or lesions. Warm and dry. Skin is intact. Neurological: No focal neurological deficits. Cranial nerves II-XII grossly intact. Psychiatric: Patient is agitated at times and cannot easily answer questions appropriately. Objective Data Vital Signs Vital Signs: Vital Signs - 24 hr 02/14/22 15:39 02/14/22 15:48 02/14/22 15:40 Temperature 98.6 F Pulse Rate 101 H 102 H Respiratory Rate 20 20 16 Blood Pressure 96/61 L Pulse Oximetry 96 96 97 Oxygen Delivery Room Air 02/14/22 15:41 02/14/22 15:45 02/14/22 16:00 Temperature Pulse Rate 102 H 103 H 107 H Respiratory Rate 19 21 H 20 Blood Pressure 96/61 L Pulse Oximetry 97 100 Oxygen Delivery 02/14/22 16:01 02/14/22 16:22 02/14/22 16:34 Temperature Pulse Rate 102 H 107 H 104 H Respiratory Rate 17 19 18 Blood Pressure 107/75 131/75 Pulse Oximetry 98 98 Oxygen Delivery 02/14/22 16:35 02/14/22 16:49 02/14/22 17:00 Temperature Pulse Rate 106 H 107 H 105 H Respiratory Rate 19 18 18 Blood Pressure Pulse Oximetry 100 98 96 Oxygen Delivery 02/14/22 17:01 02/14/22 17:15 02/14/22 17:40 Temperature Pulse Rate 106 H 104 H 103 H Respiratory Rate 16 15 16 Blood Pressure 128/75 Pulse Oximetry 95 Oxygen Delivery 02/14/22 17:45 02/14/22 18:00 02/14/22 18:01 Temperature Pulse Rate 102 H 100 102 H Respiratory Rate 16 13 16 Blood Pressure 118/81 Pulse Oximetry Oxygen Delivery 02/14/22 18:16 02/14/22 18:30 02/14/22 20:12 Temperature Pulse Rate 104 H 105 H 96 Respiratory Rate 16 17 18 Blood Press
--- NOTE | 2022-02-15 12:33 | PC.NURSE ---
This patient, Marshall Nix III, was received from imu 232 on 02/15/22 at 1235. Patient/family oriented to unit policies and routines
[2022-02-15 15:55] LABS: Creatine Kinase 665 U/L (55-170)
[2022-02-15 18:04] LABS: Glucose Point of Care 191 mg/dl (65-105)
[2022-02-15] MEDS: HALOPERIDOL LACTATE 5 MG/ML VIAL IM (21:52)
[2022-02-15 22:06] LABS: Glucose Point of Care 85 mg/dl (65-105)
[2022-02-16 05:19] VITALS: BP 119/81; PULSE 83; RESP 16; TEMP 36.5; O2SAT 100
[2022-02-16 05:31] LABS: Hematocrit 29.1 % (42.0-52.0); Hemoglobin 9.3 g/dL (14.0-18.0); Mean Corpuscular Hemoglobin 23.9 pg (26-34); Mean Corpuscular Volume 74.8 fl (80-100); Mean Platelet Volume 10.1 fl (7.4-10.4); Platelet Count Result 194 k/mm3 (150-375); Red Blood Count 3.89 M/mm3 (4.6-6.20); Red Cell Distribution Width 18.8 % (11.5-14.5); White Blood Count 5.3 K/mm3 (4.5-10.0)
[2022-02-16 05:45] LABS: Anion Gap 3 mmol/L (8-16); Blood Urea Nitrogen 23 mg/dL (9-20); Calcium 7.6 mg/dL (8.4-10.2); Carbon Dioxide 21 mmol/L (22-30); Chloride 105 mmol/L (98-107); Creatine Kinase 320 U/L (55-170); Estimated CRCL calculation 80 ml/min; Estimated Glomerular Filt Rate > 60; Glucose 78 mg/dL (65-110); Potassium 4.3 mmol/L (3.4-5.0); Sodium 129 mmol/L (137-145)
[2022-02-16 07:24] LABS: Glucose Point of Care 89 mg/dl (65-105)
[2022-02-16] MEDS: ACETAMINOPHEN 325 MG TABLET 650 MG PO ×3 (07:56→21:37)
[2022-02-16] MEDS: INSULIN GLARGINE (*BKC) 100 UNITS/ML 10 UNITS SUB-Q (07:57)
[2022-02-16] MEDS: LORazepam (*CRX) 0.5 MG TABLET PO ×2 (07:57→19:54)
[2022-02-16] MEDS: PANTOPRAZOLE 40 MG TABLET PO ×2 (08:00→21:06)
[2022-02-16] MEDS: CITALOPRAM HYDROBROMIDE 20 MG TABLET PO (08:00)
[2022-02-16] MEDS: HEPARIN SODIUM 5,000 UNITS/ML VIAL 5000 UNITS SUB-Q ×2 (08:00→21:37)
[2022-02-16] MEDS: NICOTINE (*PBKC) 4 MG GUM PO (08:00)
[2022-02-16] MEDS: NICOTINE (*PBKC) 14 MG PATCH 1 PATCH TRANSDERM (09:23)
[2022-02-16] MEDS: SODIUM CHLORIDE 0.9% IV 1,000 ML 100 ML IV CONT ×2 (10:33→21:06)
--- NOTE | 2022-02-16 11:35 | PM.IMPN ---
Progress Note: A&P Assessment and Plan (1) Altered mental status: Code(s): R41.82 - Altered mental status, unspecified Status: Acute Assessment and Plan: Most likely secondary to ingestion of methamphetamines. Resolved (2) Acute hyponatremia: Code(s): E87.1 - Hypo-osmolality and hyponatremia Status: Acute Assessment and Plan: Improved, monitor electrolytes. Multifactorial but likely related decreased p.o. intake and dehydration. Monitor labs (3) Acute hyperkalemia: Code(s): E87.5 - Hyperkalemia Status: Acute Assessment and Plan: Monitor (4) ANIRUDH (acute kidney injury): Code(s): N17.9 - Acute kidney failure, unspecified Status: Acute Assessment and Plan: Secondary to dehydration most likely. IV fluids, monitor labs. Now resolved (5) Acute UTI: Code(s): N39.0 - Urinary tract infection, site not specified Status: Acute Assessment and Plan: IV Rocephin Can be switched to oral (6) Elevated CK: Code(s): R74.8 - Abnormal levels of other serum enzymes Status: Acute Assessment and Plan: Secondary dehydration and methamphetamine use. Continue IV fluids and supportive care. Trend CK. Improving (7) Dysphagia: Code(s): R13.10 - Dysphagia, unspecified Status: Acute Assessment and Plan: Consul GI -plan for scope per GI no. However patient did eat something for breakfast according to the nurses staff. Will make the patient NPO tonight and defer to GI for scope planning. CT scan from prior hospitalizations noted. This is a chronic issue secondary to decreased p.o. intake he is having some electrolyte abnormalities. Subjective Date/time seen: 02/16/22 11:35 No new complaints today Exam Narrative: Constitutional: Patient is well-nourished in no acute distress. Patient is alert and oriented x1-2 HEENT: Moist mucous membranes. No scleral icterus. No lymphadenopathy. Neck: No carotid bruits noted no JVD noted Lungs: Lung sounds are clear to auscultation bilaterally. No accessory muscle use. No rhonchi, rales, or wheezes noted. Cardiovascular: Apical pulse is regular rhythm and tachycardic S1-S2 noted, no S3 or S4 noted. No gallops, murmurs, or rubs noted. Abdomen: Soft, round, and nontender. No palpable masses. Extremities: No edema. Nontender. Skin: No rashes or lesions. Warm and dry. Skin is intact. Neurological: No focal neurological deficits. Cranial nerves II-XII grossly intact. Psychiatric: Patient is agitated at times and cannot easily answer questions appropriately. Objective Data Vital Signs Vital Signs: Vital Signs - 24 hr 02/15/22 12:00 02/15/22 16:00 02/15/22 20:01 Temperature 97.2 F L 97.7 F Pulse Rate 99 95 Respiratory Rate 18 16 Blood Pressure 114/56 L 115/58 L Pulse Oximetry 93 99 94 Oxygen Delivery Room Air 02/15/22 22:06 02/15/22 20:00 02/16/22 05:19 Temperature 97.7 F Pulse Rate 83 Respiratory Rate 16 Blood Pressure 119/81 Pulse Oximetry 100 Oxygen Delivery Room Air Room Air 02/16/22 07:52 Temperature Pulse Rate Respiratory Rate Blood Pressure Pulse Oximetry Oxygen Delivery Room Air Intake/Output Intake/Output: Intake & Output 02/13/22 02/14/22 02/15/22 02/16/22 23:59 23:59 23:59 23:59 Intake Total 2050 3730 1740 Output Total 3150 1400 Balance 2050 580 340 Meds/Results Medications: Active Medications Generic Name Dose Route Start Last Admin Trade Name Freq PRN Reason Stop Dose Admin Acetaminophen 650 mg 02/15/22 09:42 02/16/22 07:56 Acetaminophen 325 Mg Tablet PO 650 mg Q4H PRN Administration Headache Citalopram Hydrobromide 20 mg 02/15/22 09:00 02/16/22 08:00 Citalopram Hydrobromide 20 Mg Tablet PO 20 mg DAILY TAHIR Administration Dextrose 12.5 gm 02/14/22 22:13 Dextrose 50% 25 Gm/50 Ml Syringe IV PUSH PRN PRN Hypoglycemia Protocol Gluc
[2022-02-16 11:40] LABS: Glucose Point of Care 128 mg/dl (65-105)
[2022-02-16 14:05] VITALS: BP 144/95; PULSE 92; RESP 20; TEMP 36.5; O2SAT 100
--- NOTE | 2022-02-16 14:30 | PCPTNOTE ---
Attempted PT evaluation, Per RN, patient's blood pressure too high at this time and to try back later. Will follow
[2022-02-16 16:23] LABS: Glucose Point of Care 126 mg/dl (65-105)
--- NOTE | 2022-02-16 17:27 | WPDGIPROGNO ---
Progress Note: A&P Assessment and Plan (1) Altered mental status: Code(s): R41.82 - Altered mental status, unspecified Status: Acute Assessment and Plan: Most likely secondary to ingestion of methamphetamines. Resolved (2) Acute hyponatremia: Code(s): E87.1 - Hypo-osmolality and hyponatremia Status: Acute Assessment and Plan: Improved, monitor electrolytes. Multifactorial but likely related decreased p.o. intake and dehydration. Monitor labs (3) Acute hyperkalemia: Code(s): E87.5 - Hyperkalemia Status: Acute Assessment and Plan: Monitor (4) ANIRUDH (acute kidney injury): Code(s): N17.9 - Acute kidney failure, unspecified Status: Acute Assessment and Plan: Secondary to dehydration most likely. IV fluids, monitor labs. Now resolved (5) Elevated CK: Code(s): R74.8 - Abnormal levels of other serum enzymes Status: Acute Assessment and Plan: Secondary dehydration and methamphetamine use. Continue IV fluids and supportive care. (6) Dysphagia: Code(s): R13.10 - Dysphagia, unspecified Status: Acute Assessment and Plan: I will schedule him for EGD to be done tomorrow. I told that we may or may not be able to perform esophageal dilatation depending on how much is esophagitis has healed.. (7) Erosive esophagitis: Code(s): K22.10 - Ulcer of esophagus without bleeding Status: Acute Assessment and Plan: he had diffuse concentric circumferential ulceration of more than half of his esophagus when examined a couple months ago. Hopefully this is improved although he did not stay on pantoprazole as planned Subjective Date/time seen: 02/16/22 17:27 he states that he is only able to swallow Cheerios with milk. He did have some oatmeal today. He says other food consistencies he cannot tolerate. He says occasionally he can get some hard boiled egg down if he takes tiny bites. He has difficulty with pasta and breads. He admits that he did not continue to take the pantoprazole that we had started him on for his severe esophagitis that was found a couple of months ago. Review of Systems Review of Systems: All systems reviewed & are unremarkable except as noted in HPI and below Exam Const: General: alert Orientation/consciousness: patient oriented x3 HENMT: Teeth and gingiva: edentulous Resp: Auscultation: clear to auscultation bilaterally Cardio: Rhythm: regular rhythm GI: GI Palp: Yes Soft to palpation and No Tenderness to palpation present (GI) Neuro: General: patient oriented x3 Objective Data Vital Signs Vital Signs: Vital Signs - 24 hr 02/15/22 20:01 02/15/22 22:06 02/15/22 20:00 Temperature Pulse Rate Respiratory Rate Blood Pressure Pulse Oximetry 94 Oxygen Delivery Room Air Room Air Room Air 02/16/22 05:19 02/16/22 07:52 02/16/22 15:35 Temperature 36.5 C Pulse Rate 83 Respiratory Rate 16 Blood Pressure 119/81 Pulse Oximetry 100 Oxygen Delivery Room Air Room Air Intake/Output Intake/Output: Intake & Output 02/13/22 02/14/22 02/15/22 02/16/22 23:59 23:59 23:59 23:59 Intake Total 2050 3730 3480 Output Total 3150 1400 Balance 2050 580 2080 Meds/Results Medications: Active Medications Generic Name Dose Route Start Last Admin Trade Name Freq PRN Reason Stop Dose Admin Acetaminophen 650 mg 02/15/22 09:42 02/16/22 17:02 Acetaminophen 325 Mg Tablet PO 650 mg Q4H PRN Administration Headache Citalopram Hydrobromide 20 mg 02/15/22 09:00 02/16/22 08:00 Citalopram Hydrobromide 20 Mg Tablet PO 20 mg DAILY TAHIR Administration Dextrose 12.5 gm 02/14/22 22:13 Dextrose 50% 25 Gm/50 Ml Syringe IV PUSH PRN PRN Hypoglycemia Protocol Glucagon 1 mg 02/14/22 22:13 Glucagon For Inj 1 Mg Vial IM PRN PRN Hypoglycemia Protocol Glucose 15 gm 02/14/22 22:13 Gluc
[2022-02-16 19:21] VITALS: BP 129/85; PULSE 89; RESP 17; TEMP 36.6; O2SAT 99
[2022-02-16 21:17] LABS: Glucose Point of Care 151 mg/dl (65-105)
[2022-02-16 21:22] VITALS: O2SAT 99
[2022-02-17] VITALS (7 sets, daily range): BP systolic 88–135; BP diastolic 54–93; PULSE 65–102; RESP 14–20; TEMP 36.5–36.7; O2SAT 99–100
[2022-02-17 05:56] LABS: Anion Gap 2 mmol/L (8-16); Blood Urea Nitrogen 16 mg/dL (9-20); Calcium 7.8 mg/dL (8.4-10.2); Carbon Dioxide 23 mmol/L (22-30); Chloride 106 mmol/L (98-107); Estimated CRCL calculation 73 ml/min; Estimated Glomerular Filt Rate > 60; Glucose 89 mg/dL (65-110); Potassium 4.3 mmol/L (3.4-5.0); Sodium 131 mmol/L (137-145)
[2022-02-17] MEDS: SODIUM CHLORIDE 0.9% IV 1,000 ML 100 ML IV CONT (07:28)
[2022-02-17 07:29] LABS: Glucose Point of Care 109 mg/dl (65-105)
[2022-02-17] MEDS: LORazepam (*CRX) 0.5 MG TABLET PO ×2 (08:53→21:28)
[2022-02-17] MEDS: INSULIN GLARGINE (*BKC) 100 UNITS/ML 20 UNITS SUB-Q (08:53)
[2022-02-17] MEDS: NICOTINE (*PBKC) 14 MG PATCH 1 PATCH TRANSDERM (08:54)
[2022-02-17] MEDS: ACETAMINOPHEN 325 MG TABLET 650 MG PO ×3 (08:59→21:28)
[2022-02-17 11:33] LABS: Glucose Point of Care 104 mg/dl (65-105)
--- NOTE | 2022-02-17 12:07 | PM.IMPN ---
Progress Note: A&P Assessment and Plan (1) Altered mental status: Code(s): R41.82 - Altered mental status, unspecified Status: Acute Assessment and Plan: Most likely secondary to ingestion of methamphetamines. Resolved (2) Acute hyponatremia: Code(s): E87.1 - Hypo-osmolality and hyponatremia Status: Acute Assessment and Plan: Continues to improve, continue current management with IV fluids (3) Acute hyperkalemia: Code(s): E87.5 - Hyperkalemia Status: Acute Assessment and Plan: Monitor, resolved (4) ANIRUDH (acute kidney injury): Code(s): N17.9 - Acute kidney failure, unspecified Status: Acute Assessment and Plan: Secondary to dehydration most likely. IV fluids, monitor labs. Now resolved (5) Acute UTI: Code(s): N39.0 - Urinary tract infection, site not specified Status: Acute Assessment and Plan: Noted to be ESBL on culture, only susceptible to oral Bactrim, will start this today and monitor kidney function closely l (6) Elevated CK: Code(s): R74.8 - Abnormal levels of other serum enzymes Status: Acute Assessment and Plan: Secondary dehydration and methamphetamine use. Continue IV fluids and supportive care. Trend CK. Improving (7) Dysphagia: Code(s): R13.10 - Dysphagia, unspecified Status: Acute Assessment and Plan: Consul GI -plan for scope per GI no. However patient did eat something for breakfast according to the nurses staff. Will make the patient NPO tonight and defer to GI for scope planning. CT scan from prior hospitalizations noted. This is a chronic issue secondary to decreased p.o. intake he is having some electrolyte abnormalities. Subjective Date/time seen: 02/17/22 12:07 Interval history: Patient resting comfortably without any complaints, requesting more Ativan throughout the day. Otherwise no events noted overnight. No chest pain or shortness of breath. No nausea vomiting or diarrhea. Review of Systems Review of Systems: All systems reviewed & are unremarkable except as noted in HPI and below (HPI) Exam Narrative: Constitutional: Patient is well-nourished in no acute distress. Patient is alert and oriented x1-2 HEENT: Moist mucous membranes. No scleral icterus. No lymphadenopathy. Neck: No carotid bruits noted no JVD noted Lungs: Lung sounds are clear to auscultation bilaterally. No accessory muscle use. No rhonchi, rales, or wheezes noted. Cardiovascular: S1-S2 noted, no S3 or S4 noted. No gallops, murmurs, or rubs noted. Abdomen: Soft, round, and nontender. No palpable masses. Extremities: No edema. Nontender. Skin: No rashes or lesions. Warm and dry. Skin is intact. Neurological: No focal neurological deficits. Cranial nerves II-XII grossly intact. Objective Data Vital Signs Vital Signs: Vital Signs - 24 hr 02/16/22 15:35 02/16/22 14:05 02/16/22 19:21 Temperature 97.7 F 97.8 F Pulse Rate 92 89 Respiratory Rate 20 17 Blood Pressure 144/95 H 129/85 Pulse Oximetry 100 99 Oxygen Delivery Room Air 02/16/22 21:22 02/17/22 04:25 02/17/22 08:50 Temperature 97.8 F Pulse Rate 77 Respiratory Rate 16 Blood Pressure 107/54 L Pulse Oximetry 99 99 Oxygen Delivery Room Air Room Air Intake/Output Intake/Output: Intake & Output 02/14/22 02/15/22 02/16/22 02/17/22 23:59 23:59 23:59 23:59 Intake Total 2050 3730 5402 1000 Output Total 3150 2775 1300 Balance 2050 580 2627 -300 Meds/Results Medications: Active Medications Generic Name Dose Route Start Last Admin Trade Name Freq PRN Reason Stop Dose Admin Acetaminophen 650 mg 02/15/22 09:42 02/17/22 08:59 Acetaminophen 325 Mg Tablet PO 650 mg Q4H PRN Administration Headache Citalopram Hydrobromide 20 mg 02/15/22 09:00 02/16/22 08:00 Citalopram Hydrobromide 20 Mg Tablet PO 20 mg DAILY TAHIR Administration Dextrose 12.5 gm 06
[2022-02-17 12:24] LABS: Glucose Point of Care 106 mg/dl (65-105)
[2022-02-17] MEDS: LACTATED RINGERS 1,000 ML 150 ML IV CONT (12:25)
--- NOTE | 2022-02-17 12:33 | PC.NURSE ---
Patient to GI lab per stretcher at 1205.
[2022-02-17] MEDS: BENZOCAINE (*SP) 60 ML SPRAY CAN (HURRICAINE) 1 SPRAY MUCOUS MEM (13:03)
[2022-02-17 13:43] LABS: Glucose Point of Care 108 mg/dl (65-105)
[2022-02-17] MEDS: PANTOPRAZOLE 40 MG TABLET PO ×2 (14:25→21:30)
[2022-02-17] MEDS: CITALOPRAM HYDROBROMIDE 20 MG TABLET PO (14:25)
[2022-02-17] MEDS: PREGABALIN (*CRX) 75 MG CAPSULE 150 MG PO (14:25)
[2022-02-17] MEDS: HEPARIN SODIUM 5,000 UNITS/ML VIAL 5000 UNITS SUB-Q ×2 (14:25→21:29)
[2022-02-17] MEDS: hydrOXYzine HCL 25 MG TABLET PO (15:07)
[2022-02-17 16:16] LABS: Glucose Point of Care 237 mg/dl (65-105)
[2022-02-17] MEDS: INSULIN ASPART (*BKC) 100 UNITS/ML SUB-Q (16:26)
[2022-02-17 20:50] LABS: Glucose Point of Care 133 mg/dl (65-105)
[2022-02-18] MEDS: ACETAMINOPHEN 325 MG TABLET 650 MG PO ×4 (05:18→21:17)
[2022-02-18] MEDS: hydrOXYzine HCL 25 MG TABLET PO ×3 (05:19→18:15)
[2022-02-18 05:21] VITALS: BP 129/77; PULSE 96; RESP 20; TEMP 36.4; O2SAT 99
[2022-02-18 07:42] LABS: Glucose Point of Care 126 mg/dl (65-105)
[2022-02-18 08:46] LABS: Basophils Percent Auto 0.6 % (0.2-1.2); Eosinophils Absolute Auto 0.2 K/mm3 (0-0.3); Eosinophils Percent Auto 3.9 % (0-4.4); Hematocrit 34.2 % (42.0-52.0); Hemoglobin 10.4 g/dL (14.0-18.0); Immature Granulocyte Absolute 0.01 K/mm3 (0.00-0.031); Immature Granulocyte Percent A 0.2 % (0-0.5); Lymphocytes Absolute Auto 1.88 K/mm3 (0.9-3.2); Lymphocytes Percent Auto 38.3 % (18.3-44.2); Mean Corpuscular HGB Conc 30.4 g/dl (32-36); Mean Corpuscular Hemoglobin 23.5 pg (26-34); Mean Corpuscular Volume 77.2 fl (80-100); Mean Platelet Volume 9.9 fl (7.4-10.4); Monocytes Absolute Auto 0.6 K/mm3 (0.1-0.6); Monocytes Percent Auto 12.4 % (2.6-8.5); Neutrophils Absolute Auto 2.2 K/mm3 (1.3-6.7); Neutrophils Percent Auto 44.6 % (45.5-73.1); Platelet Count Result 201 k/mm3 (150-375); Red Blood Count 4.43 M/mm3 (4.6-6.20); Red Cell Distribution Width 18.6 % (11.5-14.5); White Blood Count 4.9 K/mm3 (4.5-10.0)
[2022-02-18] MEDS: CITALOPRAM HYDROBROMIDE 20 MG TABLET PO (08:50)
[2022-02-18] MEDS: NICOTINE (*PBKC) 14 MG PATCH 1 PATCH TRANSDERM (08:50)
[2022-02-18] MEDS: INSULIN GLARGINE (*BKC) 100 UNITS/ML 20 UNITS SUB-Q (08:56)
[2022-02-18 09:03] LABS: Alanine Aminotransferase 128 U/L (6-50); Albumin Level 3.5 g/dL (3.5-5.1); Alkaline Phosphatase 248 U/L (38-126); Anion Gap 6 mmol/L (8-16); Aspartate Amino Transferase 100 U/L (17-59); Bilirubin,Total 0.5 mg/dL (0.2-1.3); Blood Urea Nitrogen 17 mg/dL (9-20); Carbon Dioxide 21 mmol/L (22-30); Chloride 106 mmol/L (98-107); Estimated CRCL calculation 56 ml/min; Estimated Glomerular Filt Rate > 60; Glucose 127 mg/dL (65-110); Potassium 4.2 mmol/L (3.4-5.0); Sodium 133 mmol/L (137-145)
--- NOTE | 2022-02-18 09:11 | WPDANESPN ---
Anes - Prog Note Post-Op Date/Time: 02/18/22 09:11 Cardiovascular status: normal Respiratory status: normal Airway patency: baseline Mental status: baseline Post-Op hydration status: normal Vital Signs: Last Vital Signs Temp 97.6 F 02/18/22 05:21 Pulse 96 02/18/22 05:21 Resp 20 02/18/22 05:21 BP 129/77 02/18/22 05:21 Pulse Ox 99 02/18/22 05:21 O2 Del Method Room Air 02/17/22 13:38 Pain Score (VAS): 09/21 I/O: Intake & Output 02/17/22 02/18/22 02/18/22 23:59 07:59 15:59 Intake Total 520 550 Output Total 300 Balance 220 550 Laboratory Tests 02/18/22 08:38 02/17/22 02/17/22 02/17/22 11:30 12:22 13:40 WBC RBC Hgb Hct MCV MCH MCHC RDW Plt Count MPV Immature Gran % (Auto) Neut % (Auto) Lymph % (Auto) [place] % (Auto) Eos % (Auto) Baso % (Auto) Lymph # (Auto) [place] # (Auto) Eos # (Auto) Baso # (Auto) Abs Immat Gran (auto) Absolute Neuts (auto) Absolute Nucleated RBC Nucleated RBC % Sodium Potassium Chloride Carbon Dioxide Anion Gap BUN Creatinine Estim Creat Clear Calc Estimated GFR Glucose POC Capillary Glucose 104 106 H 108 H Calcium Total Bilirubin AST ALT Alkaline Phosphatase Total Protein Albumin 02/17/22 02/17/22 02/18/22 16:13 20:40 07:38 WBC RBC Hgb Hct MCV MCH MCHC RDW Plt Count MPV Immature Gran % (Auto) Neut % (Auto) Lymph % (Auto) [place] % (Auto) Eos % (Auto) Baso % (Auto) Lymph # (Auto) [place] # (Auto) Eos # (Auto) Baso # (Auto) Abs Immat Gran (auto) Absolute Neuts (auto) Absolute Nucleated RBC Nucleated RBC % Sodium Potassium Chloride Carbon Dioxide Anion Gap BUN Creatinine Estim Creat Clear Calc Estimated GFR Glucose POC Capillary Glucose 237 H 133 H 126 H Calcium Total Bilirubin AST ALT Alkaline Phosphatase Total Protein Albumin 02/18/22 02/18/22 08:38 08:38 WBC Pending RBC Pending Hgb Pending Hct Pending MCV Pending MCH Pending MCHC Pending RDW Pending Plt Count Pending MPV Pending Immature Gran % (Auto) Pending Neut % (Auto) Pending Lymph % (Auto) Pending [place] % (Auto) Pending Eos % (Auto) Pending Baso % (Auto) Pending Lymph # (Auto) Pending [place] # (Auto) Pending Eos # (Auto) Pending Baso # (Auto) Pending Abs Immat Gran (auto) Pending Absolute Neuts (auto) Pending Absolute Nucleated RBC Pending Nucleated RBC % Pending Sodium 133 L Potassium 4.2 Chloride 106 Carbon Dioxide 21 L Anion Gap 6 L BUN 17 Creatinine 1.10 Estim Creat Clear Calc 56 Estimated GFR > 60 Glucose 127 H POC Capillary Glucose Calcium 8.0 L Total Bilirubin 0.5 AST 100 H ALT 128 H Alkaline Phosphatase 248 H Total Protein 8.0 Albumin 3.5 Post-procedural complaints: none Patient Feedback: Patient satisfied with anesthetic care.
[2022-02-18] MEDS: LORazepam (*CRX) 0.5 MG TABLET PO ×2 (09:14→21:04)
[2022-02-18] MEDS: PREGABALIN (*CRX) 75 MG CAPSULE 150 MG PO (09:14)
[2022-02-18] MEDS: HEPARIN SODIUM 5,000 UNITS/ML VIAL 5000 UNITS SUB-Q ×2 (10:02→21:02)
[2022-02-18] MEDS: PANTOPRAZOLE 40 MG TABLET PO ×2 (10:02→21:04)
[2022-02-18 12:26] LABS: Glucose Point of Care 286 mg/dl (65-105)
[2022-02-18] MEDS: INSULIN ASPART (*BKC) 100 UNITS/ML SUB-Q (12:35)
[2022-02-18 13:14] LABS: Hepatitis B Surface Antigen Positive (Negative)
[2022-02-18 13:26] LABS: HAV RESULT Negative (Negative); Hepatitis B Core IgM Result Reactive (Negative)
[2022-02-18 13:29] LABS: Hepatitis C Virus Antibody Negative (Negative)
[2022-02-18 13:47] LABS: Hepatitis A Antibody IgM 0.01 s/c
[2022-02-18 14:45] VITALS: BP 150/82; PULSE 79; RESP 18; TEMP 36.3; O2SAT 99
--- NOTE | 2022-02-18 15:15 | PM.IMPN ---
Progress Note: A&P Assessment and Plan (1) Altered mental status: Code(s): R41.82 - Altered mental status, unspecified Status: Acute Assessment and Plan: Most likely secondary to ingestion of methamphetamines. Resolved (2) Acute hyponatremia: Code(s): E87.1 - Hypo-osmolality and hyponatremia Status: Acute Assessment and Plan: Continues to improve, discontinue IV fluids, push p.o. intake, recheck in a.m. (3) Acute hyperkalemia: Code(s): E87.5 - Hyperkalemia Status: Acute Assessment and Plan: Monitor, resolved (4) ANIRUDH (acute kidney injury): Code(s): N17.9 - Acute kidney failure, unspecified Status: Acute Assessment and Plan: Secondary to dehydration most likely. P.o. fluids, monitor labs. Now resolved (5) Acute UTI: Code(s): N39.0 - Urinary tract infection, site not specified Status: Acute Assessment and Plan: Antibiotic day 2 of 7 with Bactrim for ESBL UTI, started 02/17/22, end date 02/24/22 (6) Elevated CK: Code(s): R74.8 - Abnormal levels of other serum enzymes Status: Acute Assessment and Plan: Secondary to dehydration and methamphetamine use, check hepatitis panel d/t substance abuse + elevated LFTs, RUQ US pending (7) Dysphagia: Code(s): R13.10 - Dysphagia, unspecified Status: Acute Assessment and Plan: EGD showed esophageal stricture, ADAT, f/u with GI, biopsy pending for grade IV esophagitis, r/o Bernal's Subjective Date/time seen: 02/18/22 15:15 Interval history: Patient resting comfortably without complaints. Tolerating p.o. diet. Awaiting GI recommendations, states he does not have a home to go to and is discussing with care coordination discharge plans. No overnight events noted. No chest pain or shortness of breath. No nausea vomiting or diarrhea. Review of Systems Review of Systems: All systems reviewed & are unremarkable except as noted in HPI and below (HPI) Exam Narrative: Constitutional: Patient is well-nourished in no acute distress. Patient is alert and oriented x1-2 HEENT: Moist mucous membranes. No scleral icterus. No lymphadenopathy. Neck: No carotid bruits noted no JVD noted Lungs: Lung sounds are clear to auscultation bilaterally. No accessory muscle use. No rhonchi, rales, or wheezes noted. Cardiovascular: S1-S2 noted, no S3 or S4 noted. No gallops, murmurs, or rubs noted. Abdomen: Soft, round, and nontender. No palpable masses. Extremities: No edema. Nontender. Skin: No rashes or lesions. Warm and dry. Skin is intact. Neurological: No focal neurological deficits. Cranial nerves II-XII grossly intact. Objective Data Vital Signs Vital Signs: Vital Signs - 24 hr 02/17/22 22:00 02/18/22 05:21 02/18/22 08:40 Temperature 98.1 F 97.6 F Pulse Rate 101 H 96 Respiratory Rate 16 20 Blood Pressure 133/79 129/77 Pulse Oximetry 100 99 Oxygen Delivery Room Air 02/18/22 14:45 Temperature 97.4 F L Pulse Rate 79 Respiratory Rate 18 Blood Pressure 150/82 H Pulse Oximetry 99 Oxygen Delivery Intake/Output Intake/Output: Intake & Output 02/15/22 02/16/22 02/17/22 02/18/22 23:59 23:59 23:59 23:59 Intake Total 3730 5402 1970 790 Output Total 3150 2775 2000 Balance 580 3127 -30 790 Meds/Results Medications: Active Medications Generic Name Dose Route Start Last Admin Trade Name Freq PRN Reason Stop Dose Admin Acetaminophen 650 mg 02/15/22 09:42 02/18/22 09:15 Acetaminophen 325 Mg Tablet PO 650 mg Q4H PRN Administration Headache Citalopram Hydrobromide 20 mg 02/15/22 09:00 02/18/22 08:50 Citalopram Hydrobromide 20 Mg Tablet PO 20 mg DAILY TAHIR Administration Dextrose 12.5 gm 02/14/22 22:13 Dextrose 50% 25 Gm/50 Ml Syringe IV PUSH PRN PRN Hypoglycemia Protocol Glucagon 1 mg 02/14/22 22:13 Glucagon For Inj 1 Mg Vial IM PRN PRN Hypoglycemia
[2022-02-18 16:27] LABS: Glucose Point of Care 79 mg/dl (65-105)
[2022-02-18 21:41] LABS: Glucose Point of Care 235 mg/dl (65-105)
[2022-02-18 22:00] VITALS: BP 138/91; PULSE 66; RESP 16; TEMP 36.3; O2SAT 100
[2022-02-19] MEDS: hydrOXYzine HCL 25 MG TABLET PO ×3 (04:40→17:00)
[2022-02-19 06:00] VITALS: BP 134/82; PULSE 71; RESP 16; TEMP 36.3; O2SAT 99
[2022-02-19 06:17] LABS: Hematocrit 34.2 % (42.0-52.0); Hemoglobin 10.3 g/dL (14.0-18.0); Mean Corpuscular HGB Conc 30.1 g/dl (32-36); Mean Corpuscular Hemoglobin 23.2 pg (26-34); Mean Platelet Volume 10.1 fl (7.4-10.4); Platelet Count Result 209 k/mm3 (150-375); Red Blood Count 4.44 M/mm3 (4.6-6.20); Red Cell Distribution Width 18.6 % (11.5-14.5); White Blood Count 5.8 K/mm3 (4.5-10.0)
--- NOTE | 2022-02-19 07:01 | WPDGIPROGNO ---
Progress Note: A&P Assessment and Plan (1) Altered mental status: Code(s): R41.82 - Altered mental status, unspecified Status: Acute Assessment and Plan: Most likely secondary to ingestion of methamphetamines. Resolved (2) Acute hyponatremia: Code(s): E87.1 - Hypo-osmolality and hyponatremia Status: Acute Assessment and Plan: Improved, monitor electrolytes. Multifactorial but likely related decreased p.o. intake and dehydration. Monitor labs (3) Acute hyperkalemia: Code(s): E87.5 - Hyperkalemia Status: Acute Assessment and Plan: Monitor (4) ANIRUDH (acute kidney injury): Code(s): N17.9 - Acute kidney failure, unspecified Status: Acute Assessment and Plan: Secondary to dehydration most likely. IV fluids, monitor labs. Now resolved (5) Elevated CK: Code(s): R74.8 - Abnormal levels of other serum enzymes Status: Acute Assessment and Plan: Secondary dehydration and methamphetamine use. Continue IV fluids and supportive care. (6) Dysphagia: Code(s): R13.10 - Dysphagia, unspecified Status: Acute Assessment and Plan: I will schedule him for EGD to be done tomorrow. I told that we may or may not be able to perform esophageal dilatation depending on how much is esophagitis has healed.. 02/19. Although he still has esophagitis, it is much better than 2 months ago. I was able to dilate his esophagus up to 36 [place]. I told that it another month or so we will dilate him further. He was eating soft food yesterday (7) Erosive esophagitis: Code(s): K22.10 - Ulcer of esophagus without bleeding Status: Acute Assessment and Plan: he had diffuse concentric circumferential ulceration of more than half of his esophagus when examined a couple months ago. Hopefully this is improved although he did not stay on pantoprazole as planned (8) Transaminitis: Code(s): R74.01 - Elevation of levels of liver transaminase levels Status: Acute Assessment and Plan: abdominal ultrasound to be done today. He states he has had no alcohol for the past month Subjective Date/time seen: 02/19/22 07:01 He states that he was able to tolerate soft food yesterday. He even had turkey although it seemed to catch for brief time on the way down. He is still uncomfortable when he swallows. I explained that he still has severe esophagitis but if he stays on pantoprazole which should heal. Hopefully that we will have repeat esophageal dilatation in about a month. I explained him that we are concerned about his elevated liver enzymes. He states he has had no alcohol for least 1 month. Ultrasound is scheduled for today Review of Systems Review of Systems: All systems reviewed & are unremarkable except as noted in HPI and below Exam Const: General: alert Orientation/consciousness: patient oriented x3 HENMT: Teeth and gingiva: edentulous Resp: Auscultation: clear to auscultation bilaterally Cardio: Rhythm: regular rhythm GI: GI Palp: No abdominal tenderness and Yes Soft to palpation Auscultation: normal bowel sounds Neuro: General: patient oriented x3 Motor exam (neuro): Tremors during motor activity present ( He is somewhat tremulousness and fidgety) Objective Data Vital Signs Vital Signs: Vital Signs - 24 hr 02/18/22 08:40 02/18/22 14:45 02/18/22 22:00 Temperature 36.3 C L 36.3 C L Pulse Rate 79 66 Respiratory Rate 18 16 Blood Pressure 150/82 H 138/91 H Pulse Oximetry 99 100 Oxygen Delivery Room Air 02/19/22 06:00 Temperature 36.3 C L Pulse Rate 71 Respiratory Rate 16 Blood Pressure 134/82 Pulse Oximetry 99 Oxygen Delivery Intake/Output Intake/Output: Intake & Output 02/16/22 02/17/22 02/18/22 02/19/22 23:59 23:59 23:59 23:59 Intake Total 5402 1969 1270 560 Output Total 2775 1999 Balance 7 -30 1270 560 Meds/Results Medications: Active Medicati
[2022-02-19 07:07] LABS: Alanine Aminotransferase 123 U/L (6-50); Albumin Level 3.3 g/dL (3.5-5.1); Alkaline Phosphatase 247 U/L (38-126); Anion Gap 4 mmol/L (8-16); Aspartate Amino Transferase 86 U/L (17-59); Bilirubin,Total 0.4 mg/dL (0.2-1.3); Blood Urea Nitrogen 17 mg/dL (9-20); Calcium 8.2 mg/dL (8.4-10.2); Carbon Dioxide 24 mmol/L (22-30); Chloride 105 mmol/L (98-107); Estimated CRCL calculation 47 ml/min; Estimated Glomerular Filt Rate 58; Glucose 117 mg/dL (65-110); Potassium 4.3 mmol/L (3.4-5.0); Sodium 133 mmol/L (137-145)
[2022-02-19 07:23] LABS: Glucose Point of Care 144 mg/dl (65-105)
[2022-02-19 08:58] LABS: INR 1.1; Prothrombin Time 13.7 Seconds (11.1-14.7)
[2022-02-19] MEDS: PREGABALIN (*CRX) 75 MG CAPSULE 150 MG PO (09:13)
[2022-02-19] MEDS: NICOTINE (*PBKC) 14 MG PATCH 1 PATCH TRANSDERM (09:13)
[2022-02-19] MEDS: LORazepam (*CRX) 0.5 MG TABLET PO ×3 (09:13→20:20)
[2022-02-19] MEDS: CITALOPRAM HYDROBROMIDE 20 MG TABLET PO (09:14)
[2022-02-19] MEDS: PANTOPRAZOLE 40 MG TABLET PO ×2 (09:14→20:19)
[2022-02-19] MEDS: INSULIN GLARGINE (*BKC) 100 UNITS/ML 20 UNITS SUB-Q (09:14)
[2022-02-19] MEDS: HEPARIN SODIUM 5,000 UNITS/ML VIAL 5000 UNITS SUB-Q ×2 (09:14→20:19)
--- NOTE | 2022-02-19 11:10 | PM.IMPN ---
Progress Note: A&P Assessment and Plan (1) Altered mental status: Code(s): R41.82 - Altered mental status, unspecified Status: Acute Assessment and Plan: Resolved (2) Acute hyponatremia: Code(s): E87.1 - Hypo-osmolality and hyponatremia Status: Acute Assessment and Plan: Stable 133 today (3) Acute hyperkalemia: Code(s): E87.5 - Hyperkalemia Status: Acute Assessment and Plan: Resolved (4) ANIRUDH (acute kidney injury): Code(s): N17.9 - Acute kidney failure, unspecified Status: Acute Assessment and Plan: Resolved (5) Acute UTI: Code(s): N39.0 - Urinary tract infection, site not specified Status: Acute Assessment and Plan: ESBL UTI, originally on Rocephin, then started on Bactrim February 17, 2022, end date of February 24, 2022 (6) Elevated CK: Code(s): R74.8 - Abnormal levels of other serum enzymes Status: Acute Assessment and Plan: Elevated LFTs with past history of hepatitis-B, suspect abdominal pain and elevated LFTs are and resultant from flare of hepatitis-B, appreciate GI recommendations, abdominal ultrasound pending today (7) Dysphagia: Code(s): R13.10 - Dysphagia, unspecified Status: Acute Assessment and Plan: Had EGD February 17 with esophageal dilation performed with significant improvement in symptoms, will need outpatient follow-up and possibly redilation (8) Erosive esophagitis: Code(s): K22.10 - Ulcer of esophagus without bleeding Status: Acute Assessment and Plan: Grade 4 esophagitis noted on EGD done February 17, biopsy pending for possible Bernal's, appreciate GI consultation Subjective Date/time seen: 02/19/22 11:10 Interval history: Patient states he feels a little better than yesterday. Still quite anxious and with some abdominal pain, but a little less than yesterday. No chest pain or shortness of breath. No nausea or vomiting. No diarrhea or constipation. No fevers or chills or events noted overnight. Review of Systems Review of Systems: Twelve point review of systems was reviewed and is negative except as noted in the HPI Exam Narrative: General: Patient resting comfortably in bed, no acute distress HEENT: Atraumatic, normocephalic, mucous membranes moist CV: Regular rate and rhythm, S1, S2, no murmurs rubs or gallops noted Lungs: Clear to auscultation bilaterally, no rales or crackles noted, no wheezes, good air entry Abdomen: Soft, mildly tender diffusely, no rebounding or guarding Extremities: Normal to inspection, no edema noted Skin: No rashes noted, no lesions or wounds seen Psych: Euthymic, normal affect Neuro: Cranial nerves 2-12 grossly intact, strength 5/5 upper and lower extremities noted Objective Data Vital Signs Vital Signs: Vital Signs - 24 hr 02/18/22 14:45 02/18/22 22:00 02/19/22 06:00 Temperature 97.4 F L 97.4 F L 97.4 F L Pulse Rate 79 66 71 Respiratory Rate 18 16 16 Blood Pressure 150/82 H 138/91 H 134/82 Pulse Oximetry 99 100 99 Oxygen Delivery 02/19/22 09:00 Temperature Pulse Rate Respiratory Rate Blood Pressure Pulse Oximetry Oxygen Delivery Room Air Intake/Output Intake/Output: Intake & Output 02/16/22 02/17/22 02/18/22 02/19/22 23:59 23:59 23:59 23:59 Intake Total 5402 1969 1270 560 Output Total 2775 1999 Balance 2627 -30 1270 560 Meds/Results Medications: Active Medications Generic Name Dose Route Start Last Admin Trade Name Freq PRN Reason Stop Dose Admin Acetaminophen 650 mg 02/15/22 09:42 02/18/22 21:17 Acetaminophen 325 Mg Tablet PO 650 mg Q4H PRN Administration Headache Citalopram Hydrobromide 20 mg 02/15/22 09:00 02/19/22 09:14 Citalopram Hydrobromide 20 Mg Tablet PO 20 mg DAILY TAHIR Administration Dextrose 12.5 gm 02/14/22 22:13 Dextrose 50% 25 Gm/50 Ml Syringe IV PUSH PRN PRN Hypoglycemia Protocol Glucagon
[2022-02-19 11:32] LABS: Glucose Point of Care 235 mg/dl (65-105)
[2022-02-19] MEDS: INSULIN ASPART (*BKC) 100 UNITS/ML SUB-Q ×2 (11:33→17:00)
[2022-02-19 11:57] LABS: Creatine Kinase 50 U/L (55-170)
[2022-02-19 13:50] VITALS: BP 142/87; PULSE 85; RESP 18; TEMP 36.4; O2SAT 100
[2022-02-19 16:14] LABS: Glucose Point of Care 230 mg/dl (65-105)
[2022-02-19] MEDS: ACETAMINOPHEN 325 MG TABLET 650 MG PO (20:19)
[2022-02-19 22:00] VITALS: BP 134/92; PULSE 66; RESP 16; TEMP 36.9; O2SAT 100
[2022-02-19 23:11] LABS: Glucose Point of Care 202 mg/dl (65-105)
[2022-02-20] MEDS: hydrOXYzine HCL 25 MG TABLET PO ×3 (04:58→16:28)
[2022-02-20 06:00] VITALS: BP 128/74; PULSE 64; RESP 16; TEMP 37; O2SAT 100
[2022-02-20 07:47] LABS: Glucose Point of Care 113 mg/dl (65-105)
[2022-02-20 08:13] LABS: Basophils Absolute Auto 0.1 K/mm3 (0.0-0.1); Basophils Percent Auto 1.2 % (0.2-1.2); Eosinophils Absolute Auto 0.3 K/mm3 (0-0.3); Eosinophils Percent Auto 4.2 % (0-4.4); Hematocrit 36.9 % (42.0-52.0); Hemoglobin 11.5 g/dL (14.0-18.0); Immature Granulocyte Absolute 0.02 K/mm3 (0.00-0.031); Immature Granulocyte Percent A 0.3 % (0-0.5); Lymphocytes Absolute Auto 2.51 K/mm3 (0.9-3.2); Lymphocytes Percent Auto 41.9 % (18.3-44.2); Mean Corpuscular HGB Conc 31.2 g/dl (32-36); Mean Corpuscular Hemoglobin 23.5 pg (26-34); Mean Corpuscular Volume 75.3 fl (80-100); Mean Platelet Volume 9.6 fl (7.4-10.4); Monocytes Absolute Auto 0.9 K/mm3 (0.1-0.6); Monocytes Percent Auto 15.4 % (2.6-8.5); Neutrophils Absolute Auto 2.2 K/mm3 (1.3-6.7); Platelet Count Result 230 k/mm3 (150-375); Red Cell Distribution Width 18.5 % (11.5-14.5)
[2022-02-20] MEDS: INSULIN GLARGINE (*BKC) 100 UNITS/ML 20 UNITS SUB-Q (08:24)
[2022-02-20 08:27] LABS: Platelet Estimate Adequate (Adequate); Tear Drop Cells 1+ (NORMAL)
[2022-02-20] MEDS: PANTOPRAZOLE 40 MG TABLET PO ×2 (08:29→21:03)
[2022-02-20] MEDS: NICOTINE (*PBKC) 14 MG PATCH 1 PATCH TRANSDERM (08:29)
[2022-02-20] MEDS: CITALOPRAM HYDROBROMIDE 20 MG TABLET PO (08:29)
[2022-02-20] MEDS: LORazepam (*CRX) 0.5 MG TABLET PO ×2 (08:29→21:05)
[2022-02-20] MEDS: HEPARIN SODIUM 5,000 UNITS/ML VIAL 5000 UNITS SUB-Q ×2 (08:29→21:03)
[2022-02-20] MEDS: PREGABALIN (*CRX) 75 MG CAPSULE 150 MG PO (08:30)
[2022-02-20 08:31] LABS: Alanine Aminotransferase 156 U/L (6-50); Albumin Level 3.9 g/dL (3.5-5.1); Alkaline Phosphatase 265 U/L (38-126); Anion Gap 7 mmol/L (8-16); Aspartate Amino Transferase 127 U/L (17-59); Bilirubin,Total 0.5 mg/dL (0.2-1.3); Blood Urea Nitrogen 21 mg/dL (9-20); Calcium 8.6 mg/dL (8.4-10.2); Carbon Dioxide 26 mmol/L (22-30); Chloride 101 mmol/L (98-107); Estimated CRCL calculation 44 ml/min; Estimated Glomerular Filt Rate 53; Glucose 131 mg/dL (65-110); Potassium 4.6 mmol/L (3.4-5.0); Sodium 134 mmol/L (137-145)
--- NOTE | 2022-02-20 10:50 | PM.IMPN ---
Progress Note: A&P Assessment and Plan (1) Acute hyponatremia: Code(s): E87.1 - Hypo-osmolality and hyponatremia Status: Acute Assessment and Plan: Improved to 134 today, stable (2) Acute UTI: Code(s): N39.0 - Urinary tract infection, site not specified Status: Acute Assessment and Plan: ESBL UTI, originally on Rocephin, then started on Bactrim February 17, 2022, end date of February 24, 2022 (3) Elevated CK: Code(s): R74.8 - Abnormal levels of other serum enzymes Status: Acute Assessment and Plan: Elevated LFTs with past history of hepatitis-B, suspect abdominal pain and elevated LFTs are and resultant from flare of hepatitis-B, appreciate GI recommendations LFTs continue to be elevated, abdominal ultrasound yesterday showed cirrhosis of the liver with fatty infiltration as well as possible cholelithiasis, otherwise nonacute (4) Dysphagia: Code(s): R13.10 - Dysphagia, unspecified Status: Acute Assessment and Plan: Had EGD February 17 with esophageal dilation performed with significant improvement in symptoms, will need outpatient follow-up and possibly redilation (5) Erosive esophagitis: Code(s): K22.10 - Ulcer of esophagus without bleeding Status: Acute Assessment and Plan: Grade 4 esophagitis noted on EGD done February 17, biopsy pending for possible Bernal's, appreciate GI consultation (6) Hepatitis B: Code(s): B19.10 - Unspecified viral hepatitis B without hepatic coma Status: Acute Assessment and Plan: Patient has known history of hepatitis-B, current elevated LFTs abdominal pain could be a flare-up of this condition, will discuss with GI further Subjective Date/time seen: 02/20/22 10:50 Interval history: Patient resting comfortably in bed. He still does complain of continued abdominal pain. No nausea vomiting diarrhea. No chest pain or shortness of breath. No fevers chills or night events noted. He does state he continues to be homeless and is worried about where he will go discharge. leave coordinator has given him a list of shelters in options at discharge. He is a recovering methamphetamine abuser and is hoping to be sent to a program at the [facility]. Review of Systems Review of Systems: Twelve point review of systems was reviewed and is negative except as noted in the HPI Exam Narrative: General: Patient resting comfortably in bed, no acute distress HEENT: Atraumatic, normocephalic, mucous membranes moist CV: Regular rate and rhythm, S1, S2, no murmurs rubs or gallops noted Lungs: Clear to auscultation bilaterally, no rales or crackles noted, no wheezes, good air entry Abdomen: Soft, mildly tender diffusely, no rebounding or guarding Extremities: Normal to inspection, no edema noted Skin: No rashes noted, no lesions or wounds seen Psych: Euthymic, normal affect Neuro: Cranial nerves 2-12 grossly intact, strength 5/5 upper and lower extremities noted Objective Data Vital Signs Vital Signs: Vital Signs - 24 hr 02/19/22 13:50 02/19/22 19:27 02/19/22 22:00 Temperature 97.5 F L 98.4 F Pulse Rate 85 66 Respiratory Rate 18 16 Blood Pressure 142/87 H 134/92 H Pulse Oximetry 100 100 Oxygen Delivery Room Air 02/20/22 06:00 Temperature 98.6 F Pulse Rate 64 Respiratory Rate 16 Blood Pressure 128/74 Pulse Oximetry 100 Oxygen Delivery Intake/Output Intake/Output: Intake & Output 02/17/22 02/18/22 02/19/22 02/20/22 23:59 23:59 23:59 23:59 Intake Total 1969 1270 1640 480 Output Total 1999 Balance -30 1270 1640 480 Meds/Results Medications: Active Medications Generic Name Dose Route Start Last Admin Trade Name Freq PRN Reason Stop Dose Admin Acetaminophen 650 mg 02/15/22 09:42 02/19/22 20:19 Acetaminophen 325 Mg Tablet PO 650 mg Q4H PRN Administration Headache Citalopram Hydrobromide 20 mg 02/15/22 09:00 02/20/22 08:29 Citalopram Hydrobromid
[2022-02-20 11:22] LABS: Glucose Point of Care 204 mg/dl (65-105)
[2022-02-20] MEDS: INSULIN ASPART (*BKC) 100 UNITS/ML SUB-Q ×2 (11:49→16:31)
[2022-02-20] MEDS: LIDOCAINE 5% PATCH 1 PATCH TRANSDERM (12:13)
[2022-02-20 14:02] VITALS: BP 137/77; PULSE 74; RESP 16; TEMP 36.2; O2SAT 100
[2022-02-20] MEDS: ACETAMINOPHEN 325 MG TABLET 650 MG PO ×2 (16:28→21:08)
[2022-02-20 16:36] LABS: Glucose Point of Care 250 mg/dl (65-105)
[2022-02-20 20:24] VITALS: BP 161/90; PULSE 65; RESP 18; TEMP 37.1; O2SAT 100
[2022-02-20 21:19] LABS: Glucose Point of Care 275 mg/dl (65-105)
[2022-02-21] MEDS: hydrOXYzine HCL 25 MG TABLET PO ×4 (04:46→23:20)
[2022-02-21 06:00] VITALS: BP 103/62; PULSE 74; RESP 20; TEMP 36.6; O2SAT 100
[2022-02-21 07:39] LABS: Glucose Point of Care 120 mg/dl (65-105)
[2022-02-21] MEDS: LIDOCAINE 5% PATCH 1 PATCH TRANSDERM (09:49)
[2022-02-21] MEDS: NICOTINE (*PBKC) 14 MG PATCH 1 PATCH TRANSDERM (09:49)
[2022-02-21] MEDS: PREGABALIN (*CRX) 75 MG CAPSULE 150 MG PO (09:50)
[2022-02-21] MEDS: LORazepam (*CRX) 0.5 MG TABLET PO ×2 (09:50→20:10)
[2022-02-21] MEDS: HEPARIN SODIUM 5,000 UNITS/ML VIAL 5000 UNITS SUB-Q ×2 (09:50→20:12)
[2022-02-21] MEDS: CITALOPRAM HYDROBROMIDE 20 MG TABLET PO (09:50)
[2022-02-21] MEDS: INSULIN GLARGINE (*BKC) 100 UNITS/ML 20 UNITS SUB-Q (09:50)
[2022-02-21] MEDS: PANTOPRAZOLE 40 MG TABLET PO ×2 (09:50→20:10)
[2022-02-21 11:10] LABS: Glucose Point of Care 117 mg/dl (65-105)
[2022-02-21 14:00] VITALS: BP 141/84; PULSE 68; RESP 18; TEMP 36.5; O2SAT 100
[2022-02-21 14:28] VITALS: O2SAT 99
--- NOTE | 2022-02-21 15:42 | PM.IMPN ---
Progress Note: A&P Assessment and Plan (1) Acute hyponatremia: Code(s): E87.1 - Hypo-osmolality and hyponatremia Status: Acute Assessment and Plan: Sudden drop down to 124 from 10/11 4 yesterday, suspect this is hypovolemic is patient has only had 400 mL in today as opposed to usually more than 2 L. Give 1 L bolus and recheck in the morning (2) Acute UTI: Code(s): N39.0 - Urinary tract infection, site not specified Status: Acute Assessment and Plan: ESBL UTI, originally on Rocephin, then started on Bactrim February 17, 2022, end date of February 24, 2022 (3) Elevated CK: Code(s): R74.8 - Abnormal levels of other serum enzymes Status: Acute Assessment and Plan: Elevated LFTs with past history of hepatitis-B, suspect abdominal pain and elevated LFTs are and resultant from flare of hepatitis-B, appreciate GI recommendations LFTs continue to be elevated, abdominal ultrasound yesterday showed cirrhosis of the liver with fatty infiltration as well as possible cholelithiasis, otherwise nonacute Recheck LFTs (4) Dysphagia: Code(s): R13.10 - Dysphagia, unspecified Status: Acute Assessment and Plan: Had EGD February 17 with esophageal dilation performed with significant improvement in symptoms, will need outpatient follow-up and possibly redilation (5) Erosive esophagitis: Code(s): K22.10 - Ulcer of esophagus without bleeding Status: Acute Assessment and Plan: Grade 4 esophagitis noted on EGD done February 17, biopsy pending for possible Bernal's, appreciate GI consultation (6) Hepatitis B: Code(s): B19.10 - Unspecified viral hepatitis B without hepatic coma Status: Acute Assessment and Plan: Patient has known history of hepatitis-B, current elevated LFTs abdominal pain could be a flare-up of this condition, will discuss with GI further Subjective Date/time seen: 02/21/22 15:42 Interval history: Patient resting comfortably in bed. Abdominal pain much improved. No nausea vomiting diarrhea. No chest pain or shortness of breath. No fevers chills or night events noted. He does state he continues to be homeless and is worried about where he will go discharge. neonatal icu coordinator has given him a list of shelters in options at discharge. He is a recovering methamphetamine abuser and is hoping to be sent to a program at the [facility]. Review of Systems Review of Systems: Twelve point review of systems was reviewed and is negative except as noted in the HPI Exam Narrative: General: Patient resting comfortably in bed, no acute distress HEENT: Atraumatic, normocephalic, mucous membranes moist CV: Regular rate and rhythm, S1, S2, no murmurs rubs or gallops noted Lungs: Clear to auscultation bilaterally, no rales or crackles noted, no wheezes, good air entry Abdomen: Soft, no tenderness to palpation, no rebounding or guarding Extremities: Normal to inspection, no edema noted Skin: No rashes noted, no lesions or wounds seen Psych: Euthymic, normal affect Neuro: Cranial nerves 2-12 grossly intact, strength 5/5 upper and lower extremities noted Objective Data Vital Signs Vital Signs: Vital Signs - 24 hr 02/20/22 20:24 02/21/22 06:00 02/21/22 09:50 Temperature 98.7 F 98 F Pulse Rate 65 74 Respiratory Rate 18 20 Blood Pressure 161/90 H 103/62 Pulse Oximetry 100 100 Oxygen Delivery Room Air 02/21/22 14:00 02/21/22 14:28 Temperature 97.7 F Pulse Rate 68 Respiratory Rate 18 Blood Pressure 141/84 H Pulse Oximetry 100 99 Oxygen Delivery Room Air Intake/Output Intake/Output: Intake & Output 02/18/22 02/19/22 02/20/22 02/21/22 23:59 23:59 23:59 23:59 Intake Total 1270 1640 2160 480 Balance 1270 1640 2160 480 Meds/Results Medications: Active Medications Generic Name Dose Route Start Last Admin Trade Name Freq PRN Reason Stop Dose Admin Acetaminophen 650 mg 02/15/22 09:42 02/20/22 21:08
[2022-02-21 16:02] LABS: Basophils Percent Auto 0.8 % (0.2-1.2); Eosinophils Absolute Auto 0.1 K/mm3 (0-0.3); Eosinophils Percent Auto 2.1 % (0-4.4); Hematocrit 30.2 % (42.0-52.0); Hemoglobin 9.2 g/dL (14.0-18.0); Immature Granulocyte Absolute 0.02 K/mm3 (0.00-0.031); Immature Granulocyte Percent A 0.4 % (0-0.5); Lymphocytes Absolute Auto 1.68 K/mm3 (0.9-3.2); Lymphocytes Percent Auto 32.6 % (18.3-44.2); Mean Corpuscular HGB Conc 30.5 g/dl (32-36); Mean Corpuscular Hemoglobin 23.4 pg (26-34); Mean Corpuscular Volume 76.6 fl (80-100); Monocytes Absolute Auto 0.9 K/mm3 (0.1-0.6); Monocytes Percent Auto 16.5 % (2.6-8.5); Neutrophils Absolute Auto 2.5 K/mm3 (1.3-6.7); Neutrophils Percent Auto 47.6 % (45.5-73.1); Platelet Count Result 153 k/mm3 (150-375); Red Blood Count 3.94 M/mm3 (4.6-6.20); Red Cell Distribution Width 18.1 % (11.5-14.5); White Blood Count 5.2 K/mm3 (4.5-10.0)
[2022-02-21 16:15] LABS: Alanine Aminotransferase 123 U/L (6-50); Albumin Level 3.3 g/dL (3.5-5.1); Alkaline Phosphatase 213 U/L (38-126); Anion Gap 5 mmol/L (8-16); Aspartate Amino Transferase 93 U/L (17-59); Bilirubin,Total 0.2 mg/dL (0.2-1.3); Blood Urea Nitrogen 22 mg/dL (9-20); Calcium 7.7 mg/dL (8.4-10.2); Carbon Dioxide 21 mmol/L (22-30); Chloride 98 mmol/L (98-107); Estimated CRCL calculation 47 ml/min; Estimated Glomerular Filt Rate 58; Glucose 263 mg/dL (65-110); Potassium 4.4 mmol/L (3.4-5.0); Sodium 124 mmol/L (137-145)
[2022-02-21 16:40] LABS: Glucose Point of Care 289 mg/dl (65-105)
[2022-02-21] MEDS: ACETAMINOPHEN 325 MG TABLET 650 MG PO ×2 (17:19→23:20)
[2022-02-21] MEDS: INSULIN ASPART (*BKC) 100 UNITS/ML SUB-Q (17:20)
--- NOTE | 2022-02-21 18:40 | PC.NURSE ---
Patient has a sodium level of 124 which is a significant drop from yesterday. Patient refused to allow me to hang up IV fluids as well as he refuses a fluid restriction. He will not allow me to take away his water pitcher. Patient states that he has been down this road before and that his sodium has been way lower than that. I explained that low sodium can cause several issues and he is still persistent. Notified Dr. Medina of what the patient said.
[2022-02-21 19:32] LABS: Glucose Point of Care 185 mg/dl (65-105)
[2022-02-21 20:04] VITALS: BP 149/94; PULSE 71; RESP 18; TEMP 36.5; O2SAT 100
[2022-02-21 21:00] VITALS: O2SAT 98
[2022-02-22 04:38] VITALS: BP 97/61; PULSE 73; RESP 18; TEMP 36.6; O2SAT 100
--- NOTE | 2022-02-22 05:11 | PC.NURSE ---
Patient adamantly refused his fluid restriction tonight.
[2022-02-22] MEDS: ACETAMINOPHEN 325 MG TABLET 650 MG PO ×2 (05:21→11:18)
[2022-02-22] MEDS: hydrOXYzine HCL 25 MG TABLET PO ×2 (05:21→11:19)
[2022-02-22 06:01] LABS: Anion Gap 4 mmol/L (8-16); Blood Urea Nitrogen 23 mg/dL (9-20); Carbon Dioxide 26 mmol/L (22-30); Chloride 101 mmol/L (98-107); Estimated CRCL calculation 47 ml/min; Estimated Glomerular Filt Rate 58; Glucose 101 mg/dL (65-110); Potassium 4.2 mmol/L (3.4-5.0); Sodium 131 mmol/L (137-145)
[2022-02-22] MEDS: PANTOPRAZOLE 40 MG TABLET PO (08:00)
[2022-02-22] MEDS: NICOTINE (*PBKC) 14 MG PATCH 1 PATCH TRANSDERM (08:00)
[2022-02-22] MEDS: INSULIN GLARGINE (*BKC) 100 UNITS/ML 20 UNITS SUB-Q (08:00)
[2022-02-22] MEDS: LIDOCAINE 5% PATCH 1 PATCH TRANSDERM (08:00)
[2022-02-22] MEDS: CITALOPRAM HYDROBROMIDE 20 MG TABLET PO (08:00)
[2022-02-22 08:06] LABS: Glucose Point of Care 121 mg/dl (65-105)
[2022-02-22] MEDS: HEPARIN SODIUM 5,000 UNITS/ML VIAL 5000 UNITS SUB-Q (08:06)
[2022-02-22] MEDS: PREGABALIN (*CRX) 75 MG CAPSULE 150 MG PO (08:06)
[2022-02-22] MEDS: LORazepam (*CRX) 0.5 MG TABLET PO (08:10)
[2022-02-22 08:31] LABS: Alanine Aminotransferase 140 U/L (6-50); Albumin Level 3.3 g/dL (3.5-5.1); Alkaline Phosphatase 215 U/L (38-126); Anion Gap 6 mmol/L (8-16); Aspartate Amino Transferase 113 U/L (17-59); Bilirubin,Total 0.4 mg/dL (0.2-1.3); Blood Urea Nitrogen 24 mg/dL (9-20); Calcium 8.1 mg/dL (8.4-10.2); Carbon Dioxide 24 mmol/L (22-30); Chloride 101 mmol/L (98-107); Estimated CRCL calculation 51 ml/min; Estimated Glomerular Filt Rate > 60; Glucose 101 mg/dL (65-110); Potassium 4.2 mmol/L (3.4-5.0); Sodium 131 mmol/L (137-145)
--- NOTE | 2022-02-22 09:56 | WPDGIPROGNO ---
Progress Note: A&P Assessment and Plan (1) Altered mental status: Code(s): R41.82 - Altered mental status, unspecified Status: Acute Assessment and Plan: Most likely secondary to ingestion of methamphetamines. Resolved (2) Acute hyponatremia: Code(s): E87.1 - Hypo-osmolality and hyponatremia Status: Acute Assessment and Plan: Improved, monitor electrolytes. Multifactorial but likely related decreased p.o. intake and dehydration. Monitor labs (3) Acute hyperkalemia: Code(s): E87.5 - Hyperkalemia Status: Acute Assessment and Plan: Monitor (4) ANIRUDH (acute kidney injury): Code(s): N17.9 - Acute kidney failure, unspecified Status: Acute Assessment and Plan: Secondary to dehydration most likely. IV fluids, monitor labs. Now resolved (5) Elevated CK: Code(s): R74.8 - Abnormal levels of other serum enzymes Status: Acute Assessment and Plan: Secondary dehydration and methamphetamine use. Continue IV fluids and supportive care. (6) Dysphagia: Code(s): R13.10 - Dysphagia, unspecified Status: Acute Assessment and Plan: I will schedule him for EGD to be done tomorrow. I told that we may or may not be able to perform esophageal dilatation depending on how much is esophagitis has healed.. 02/19. Although he still has esophagitis, it is much better than 2 months ago. I was able to dilate his esophagus up to 36 Romansh. I told that it another month or so we will dilate him further. He was eating soft food yesterday 02/22 I spoke to him about eating. In the past he could only tolerate milk and Cheerios. Now he is eager to try almost everything. I cautioned him that his esophagus is still somewhat narrow and inflamed. He does admit to still having some odynophagia. I told to be sure and continue his pantoprazole and it a month or 2 we will repeat dilatation. (7) Erosive esophagitis: Code(s): K22.10 - Ulcer of esophagus without bleeding Status: Acute Assessment and Plan: he had diffuse concentric circumferential ulceration of more than half of his esophagus when examined a couple months ago. Hopefully this is improved although he did not stay on pantoprazole as planned (8) Transaminitis: Code(s): R74.01 - Elevation of levels of liver transaminase levels Status: Acute Assessment and Plan: abdominal ultrasound to be done today. He states he has had no alcohol for the past month 02/22. transaminases continue to increase. Bilirubin however is normal. He has cholelithiasis but no evidence of common bile duct stone. Also bilirubin makes that unlikely. I will have him follow-up with me in the office. Subjective Date/time seen: 02/22/22 09:56 He had difficulty swallowing a hamburger the other day but since then he is eating well. I reminded him that we will do a repeat EGD and dilatation in about 4 weeks. We also discussed his liver function studies. They are increasing. He does have cirrhosis but also gallstones. I doubt choledocholithiasis because his bilirubin is normal and he has no pain. Hepatitis serology has been done is negative. I do not feel he needs to stay in the hospital for investigation of the abnormal chemistries. I am going to see him in the office in a few weeks. My office will call his mother to make the appointment Exam Const: General: alert Orientation/consciousness: patient oriented x3 HENMT: Teeth and gingiva: edentulous Resp: Auscultation: clear to auscultation bilaterally Cardio: Rhythm: regular rhythm GI: GI Palp: No abdominal tenderness and Yes No hepatosplenomegaly present Auscultation: normal bowel sounds Neuro: General: patient oriented x3 Motor exam (neuro): Tremors during motor activity present ( He is somewhat tremulousness and fidgety) Objective Data Vital Signs Vital Signs: Vital Signs - 24 hr 02/21/22 14:00 02/21/22 14:
--- NOTE | 2022-02-22 10:59 | PCNWS ---
Weekly nutritional screen. Patient is tolerating current diet with adequate intake. No weight loss reported. No nutritional needs at this time. Pt is eating 100% of meals and reports good appetite.
[2022-02-22 11:40] LABS: Glucose Point of Care 195 mg/dl (65-105)
--- NOTE | 2022-02-22 11:49 | PCNSR ---
On 02/22/22, the student, Red Rizzo, provided care and completed [facility] documentation on this patient. I have reviewed the student's documentation and agree with the findings.
--- NOTE | 2022-02-22 16:09 | PM.DS ---
DS: Admitting Diagnosis Discharge Date 02/22/22 Admitting Diagnosis Altered mental status DS: Discharge Diagnosis Discharge Diagnosis (1) Acute hyponatremia: Code(s): E87.1 - Hypo-osmolality and hyponatremia Status: Acute Assessment and Plan: Resolving, 131 at discharge (2) Acute UTI: Code(s): N39.0 - Urinary tract infection, site not specified Status: Acute Assessment and Plan: ESBL UTI, originally on Rocephin, then started on Bactrim February 17, 2022, end date of February 24, 2022 (3) Elevated CK: Code(s): R74.8 - Abnormal levels of other serum enzymes Status: Acute Assessment and Plan: Elevated LFTs with past history of hepatitis-B, suspect abdominal pain and elevated LFTs are and resultant from flare of hepatitis-B, appreciate GI recommendations LFTs continue to be elevated, abdominal ultrasound yesterday showed cirrhosis of the liver with fatty infiltration as well as possible cholelithiasis, otherwise nonacute Recheck LFTs (4) Dysphagia: Code(s): R13.10 - Dysphagia, unspecified Status: Acute Assessment and Plan: Had EGD February 17 with esophageal dilation performed with significant improvement in symptoms, will need outpatient follow-up and possibly redilation (5) Erosive esophagitis: Code(s): K22.10 - Ulcer of esophagus without bleeding Status: Acute Assessment and Plan: Grade 4 esophagitis noted on EGD done February 17, biopsy pending for possible Bernal's, appreciate GI consultation (6) Hepatitis B: Code(s): B19.10 - Unspecified viral hepatitis B without hepatic coma Status: Acute Assessment and Plan: Patient has known history of hepatitis-B, current elevated LFTs abdominal pain could be a flare-up of this condition, will discuss with GI further DS: Summary Hospital Course Reason for hospitalization: Altered mental status Hospital Course: A 1-year-old male with past medical history significant for COPD, diabetes, hypertension, hepatitis-B, TIA, pancreatitis and trigeminal neuralgia presented to the ER after being found in someone's front yard confused. He has a known history of taking methamphetamines but states he did not take that much that day. He was found to have hyponatremia which resolved with fluid administration. He also had some hyperkalemia and acute kidney injury that also resolved with hydration. Urinalysis was abnormal, culture ended up showing ESBL sensitive to Bactrim. He was started on a 7 day course to end February 24, 2022 antibiotics. While here, the patient developed severe dysphagia. GI was consulted recommended EGD. He was diagnosed with severe esophagitis only few months ago outpatient, and he is not continue taking his Protonix. EGD was done showing reflux esophagitis grade 4 with biopsy sent for possible Bernal's as well as a severe stenosis in the distal esophagus. This was dilated. Patient was recommended to continue Protonix for at least 6 weeks. While patient was here, he developed abdominal pain with elevated LFTs thought to be a flare of his hepatitis-B. No further intervention done other than IV fluids. Symptoms resolved, LFTs are improving. Patient was discharged in good condition to home despite being recommended to go to rehab. He will follow-up outpatient with GI. Of note, the patient did experience some anxiety while he was here, so he was discharged with hydroxyzine and a Lidoderm patch for his resolving abdominal pain. Status at Discharge Functional status at discharge: independent ambulation Overall status at discharge: patient is progressing back to baseline Time Spent with Patient Time attestation: Total time spent providing and/or coordinating discharge services: Time spent: Greater than 30 minutes Exam Narrative: General: Patient resting comfortably in bed, no acute distress HEENT: Atraumatic, normocephalic, mucous membranes moist CV: Regular rate and rhythm, S1, S2,
== END 2022-02-22 13:35 | disposition home or self-care (01) | DRG 426 ==
LOC: ANHED 18:43 → ANHIMU 18:57 → ANH2MED 02-15 12:09
PROVIDERS: Chiropractor; Internal Medicine Gastroenterology; Nurse Practitioner Adult Health; Admitting Provider Internal Medicine; Emergency Provider Emergency Medicine; PCP Nurse Practitioner; Visit Provider Student in an Organized Health Care Education/Training Program
PROC: 0DJ08ZZ Inspection of Upper Intestinal Tract, Via Natural or Artificial Opening Endoscopic (ICD-10-PCS; CPT 43235; principal; 2022-02-17 13:00)
DX: E87.1 Hypo-osmolality and hyponatremia (principal); T43.621A Poisoning by amphetamines, accidental (unintentional), initial encounter; R41.82 Altered mental status, unspecified; N39.0 Urinary tract infection, site not specified; K22.10 Ulcer of esophagus without bleeding; K21.00 Gastro-esophageal reflux disease with esophagitis, without bleeding; E86.0 Dehydration; E87.5 Hyperkalemia; B19.10 Unspecified viral hepatitis B without hepatic coma; N17.9 Acute kidney failure, unspecified; E11.9 Type 2 diabetes mellitus without complications; F15.99 Other stimulant use, unspecified with unspecified stimulant-induced disorder; F17.210 Nicotine dependence, cigarettes, uncomplicated; F12.90 Cannabis use, unspecified, uncomplicated; F41.9 Anxiety disorder, unspecified; G50.0 Trigeminal neuralgia; I25.2 Old myocardial infarction; I10 Essential (primary) hypertension; J44.9 Chronic obstructive pulmonary disease, unspecified; K74.60 Unspecified cirrhosis of liver; K80.20 Calculus of gallbladder without cholecystitis without obstruction; M79.7 Fibromyalgia; R74.01 Elevation of levels of liver transaminase levels; R00.0 Tachycardia, unspecified; Z79.4 Long term (current) use of insulin; Z88.0 Allergy status to penicillin; Z86.718 Personal history of other venous thrombosis and embolism; Z86.73 Personal history of transient ischemic attack (TIA), and cerebral infarction without residual deficits; Z16.12 Extended spectrum beta lactamase (ESBL) resistance; Z59.00 Homelessness unspecified
CPT/HCPCS: 36415; 76705; 80048; 80053; 80074; 80307; 81001; 82550; 82948; 85025; 85027; 85610; 87077; 87086; 87088; 87186; 88305; 96360; 96361; 96365; 96372; 97161; 97165; 99285; A9270; G0378; G0379; J0696; J1630; J1644; J1815; J2704; J7030; J7120

== ENCOUNTER 2022-06-25 01:11 | Day surgery (SDC) | payer OTHER, SELFPAY ==
[2022-06-18 14:33] VITALS: BMI 26.9
--- NOTE | 2022-06-24 20:07 | PM.HPGS ---
History of Present Illness History of Present Illness Consent: Risks, benefits, and alternatives have been discussed and questions answered. Patient agrees to proceed with procedure. Chief complaint: Dyplasia Narrative: Marshall Nix III is a 51 year old male recently found to have severe reflux esophagitis, grade IV, annd a 5 cm long stricture which was careflly dlated up to 36 Fr A couple months ago. A few months prior to that he had even worse esophagitis. When he was discharged from the hospital a few months ago it appears that the hospitalist for got to send him home on pantoprazole. He also mentioned that when he feels food gets stuck, that he feels that is caught somewhere in the area of the armpit. Review of Systems Review of Systems: All systems reviewed & are unremarkable except as noted in HPI and below PMFSH Past Medical History Medical History COPD (chronic obstructive pulmonary disease) Diabetes DVT (deep venous thrombosis) Fibromyalgia H/O: HTN (hypertension) Hepatitis B Myocardial infarction Pancreatitis TIA (transient ischemic attack) Trigeminal neuralgia Surgical History Surgical History History of nasal surgery Family History Family History Mother Breast cancer Social History Social History Social History: History of alcohol abuse Smoking status: Current some day smoker Tobacco type: cigars Alcohol intake: former Substance use: current Substance use type: marijuana Living arrangements: with family Gender identity (if verbalized by the patient): Male Sexual Orientation (if Verbalized by the Patient): Straight or Heterosexual Spiritual care concerns: No Meds Home Medications and Allergies Home Medications Medication Instructions Recorded Confirmed Type citalopram 20 mg tablet 20 mg PO DAILY 12/17/21 06/18/22 History insulin glargine 100 unit/mL (3 20 unit subcut DAILY 12/17/21 06/18/22 History mL) subcutaneous pen (Basaglar KwikPen U-100 Insulin) lorazepam 0.5 mg tablet 1 tablet PO BID PRN Anxiety 02/14/22 06/18/22 History pregabalin 150 mg capsule 1 cap PO DAILY 02/17/22 06/18/22 History Allergies Allergy/AdvReac Type Severity Reaction Status Date / Time latex Allergy Unknown Blister Verified 06/25/22 10:07 Penicillins Allergy Unknown Nausea and Verified 06/25/22 10:07 Vomiting Exam Const: General: alert Orientation/consciousness: patient oriented x3 Resp: Auscultation: clear to auscultation bilaterally Cardio: Rhythm: regular rhythm GI: GI Palp: Yes Soft to palpation and No Tenderness to palpation present (GI) Neuro: General: patient oriented x3 Assessment and Plan Assessment and plan (1) Erosive esophagitis: Code(s): K22.10 - Ulcer of esophagus without bleeding Status: Acute Assessment and Plan: EGD with possible biopsy or dilatation or cautery.
[2022-06-25 10:08] VITALS: BP 139/100; PULSE 88; RESP 20; TEMP 36.2; O2SAT 99; BMI 29.1
[2022-06-25] MEDS: LACTATED RINGERS 1,000 ML 150 ML IV CONT (10:21)
[2022-06-25 10:26] LABS: Glucose Point of Care 202 mg/dl (65-105)
--- NOTE | 2022-06-25 10:28 | WPDANESEPPF ---
Anes - Initial Pre Proc Eval Procedure: Operation Date: 06/25/22 11:00 Proposed Procedures p Esophagogastroduodenoscopy - Carlos Santiago MD Date/Time: 06/25/22 10:28 Surgeon: Carlos Santiago MD Pre Op Diagnosis: Dyplasia Patient Data Age: 51 Gender: M Height: 1.6 m Weight: 74.6 kg Last Vital Signs Temp 97.1 F L 06/25/22 10:08 Pulse 88 06/25/22 10:08 Resp 20 06/25/22 10:08 BP 139/100 H 06/25/22 10:08 Pulse Ox 99 06/25/22 10:08 O2 Del Method Room Air 06/25/22 10:08 Allergies Allergy/AdvReac Type Severity Reaction Status Date / Time latex Allergy Unknown Blister Verified 06/25/22 10:07 Penicillins Allergy Unknown Nausea and Verified 06/25/22 10:07 Vomiting Home Medications Medication Instructions Recorded Confirmed Type citalopram 20 mg tablet 20 mg PO DAILY 12/17/21 06/18/22 History insulin glargine 100 unit/mL (3 20 unit subcut DAILY 12/17/21 06/18/22 History mL) subcutaneous pen (Basaglar KwikPen U-100 Insulin) lorazepam 0.5 mg tablet 1 tablet PO BID PRN Anxiety 02/14/22 06/18/22 History pregabalin 150 mg capsule 1 cap PO DAILY 02/17/22 06/18/22 History Laboratory Tests 06/25/22 10:20 POC Capillary Glucose 202 mg/dl H mg/dl (65-105) Patient hx anesthesia problems: none Family hx anesthesia problems: none Results Review: All pre-operative results and documents have been reviewed as part of the pre-operative evaluation. [facility] Past Medical History Medical History COPD (chronic obstructive pulmonary disease) Diabetes DVT (deep venous thrombosis) Fibromyalgia H/O: HTN (hypertension) Hepatitis B Myocardial infarction Pancreatitis TIA (transient ischemic attack) Trigeminal neuralgia Surgical History Surgical History History of nasal surgery Family History Family History Mother Breast cancer Social History Social History Social History: History of alcohol abuse Smoking status: Current some day smoker Tobacco type: cigars Alcohol intake: former Substance use: current Substance use type: marijuana Living arrangements: with family Gender identity (if verbalized by the patient): Male Sexual Orientation (if Verbalized by the Patient): Straight or Heterosexual Spiritual care concerns: No Anes - Eval Final PreProcedure Day of Procedure 06/25/22 10:28 Patient weight: obese Heart: regular rate and rhythm Lungs: clear to auscultation Airway: Mallampati scale class III Neurological: alert and oriented Last oral intake: >/= 8 hours ASA classification: III Emergent: no Anesthetic plan: proceed Anesthesia type and monitoring: general GIVS and standard monitoring Results Review: All pre-operative results and documents have been reviewed as part of the pre-operative evaluation. Informed Consent: The patient's anesthetic plan and its attendant risks and benefits were discussed with the patient/family/POA. Questions were solicited and answers provided to the satisfaction of the patient/family/POA.
[2022-06-25 11:25] VITALS: BP 117/82; PULSE 66; RESP 20; O2SAT 97
[2022-06-25 11:35] VITALS: BP 138/80; PULSE 64; RESP 20; O2SAT 99
[2022-06-25 11:44] VITALS: BP 138/80; PULSE 63; RESP 20; O2SAT 99
--- NOTE | 2022-06-25 12:50 | SUR.PHASEII ---
PT. ON CELL PHONE TALKING TO MOTHER ASKING HER TO COME PICK HIM UP. AT APPROXIMATELY 1140 PT. BECAME AGITATED AND WANTED TO GET DRESSED AND LEAVE. WAS INFORMED THAT WE NEEDED TO GET ONE MORE SET OF VITAL SIGNS BEFORE HE COULD GET DRESSED. HE INSISTED HE WANTED TO GET DRESSED AND LEAVE SO HE COULD HAVE COFFEE AND SMOKE A CIGAR. HE WAS UPSET THAT HIS RIDE WOULDN'T BE ABLE TO PICK HIM UP FOR AN HOUR AND A HALF. THREATENED TO WALK HOME. HE WAS INFORMED THAT HE COULD NOT LEAVE ON HIS OWN, HE HAD RECEIVED ANESTHESIA AND FOR HIS SAFETY HE NEEDED TO STAY. HE AGREED TO A FINAL SET OF VITAL SIGNS, THEN WOULD GO OUTSIDE WITH SOMEONE TO SMOKE. HE STATED HE HAD SEVERE ANXIETY AROUND HOSPITALS AND NEEDED TO LEAVE. HE WAS ESCORTED OUTSIDE BY MYRA RENO RN. PATIENT AWAITING RIDE OUTSIDE WITH RN.
== END 2022-06-25 13:35 | disposition home or self-care (01) ==
PROVIDERS: PCP Nurse Practitioner; Visit Provider Internal Medicine Gastroenterology
PROC: 0DJ08ZZ Inspection of Upper Intestinal Tract, Via Natural or Artificial Opening Endoscopic (ICD-10-PCS; CPT 43235; principal; 2022-06-25 11:00)
DX: K22.89 Other specified disease of esophagus (principal); K21.00 Gastro-esophageal reflux disease with esophagitis, without bleeding; K22.2 Esophageal obstruction; Z87.11 Personal history of peptic ulcer disease; Z79.4 Long term (current) use of insulin; J44.9 Chronic obstructive pulmonary disease, unspecified; E11.9 Type 2 diabetes mellitus without complications; Z86.718 Personal history of other venous thrombosis and embolism; I10 Essential (primary) hypertension; B19.10 Unspecified viral hepatitis B without hepatic coma; Z86.73 Personal history of transient ischemic attack (TIA), and cerebral infarction without residual deficits; G50.0 Trigeminal neuralgia; F17.210 Nicotine dependence, cigarettes, uncomplicated; F12.90 Cannabis use, unspecified, uncomplicated
CPT/HCPCS: 43450; 43235; 82948; J2001; J2704; J7120

== ENCOUNTER 2023-02-07 23:33 | Emergency (ER) | payer OTHER, SELFPAY ==
--- NOTE | ~2023-02-07 | XR_ITS ---
Left Knee Technique: AP, lateral, and oblique views were obtained. Clinical History: Pain Findings: No fracture or dislocation is seen. Osseous alignment is anatomic. Joint spaces are preserv ed without degenerative or erosive change. Moderate color joint effusion is seen. Impression: No fracture or dislocation. Moderate to large joint effusion, nonspecific. Reviewed, dictated and finalized at location . Impression: No fracture or dislocation. Moderate to large joint effusion, nonspecific.
--- NOTE | ~2023-02-07 | XR_ITS ---
Right Knee Technique: AP, lateral, and oblique views were obtained. Clinical History: Pain Findings: No fracture or dislocation is seen. Osseous alignment is anatomic. Joint spaces are preserv ed without degenerative or erosive change. Small joint effusion is seen. Impression: Small joint effusion, nonspecific. No fracture or dislocation evident. Reviewed, dictated and finalized at [facility]. Impression: Small joint effusion, nonspecific. No fracture or dislocation evident.
[2023-02-07 23:37] VITALS: BP 107/78; PULSE 107; RESP 18; TEMP 36.6; O2SAT 98
--- NOTE | 2023-02-07 23:43 | PC.NURSE ---
Pt to ED via EMS from [facility] with c/o bilateral knee pain x1 year that's been worse over the past 4 days per pt. Per EMS, pt c/o [place] staff that his knees were hurting but pt believed staff wasn't doing anything to help him so pt laid down on the floor until staff called 911. There is a scabbed abrasion to right knee. No obvious deformity noted. He moves all extremities equally. Pedal pulses palpable bilaterally.
--- NOTE | 2023-02-07 23:46 | ED.LOWEXIN ---
HPI - Extremity Injury (Lower) General Chief Complaint: Extremity Injury, Lower Stated Complaint: knee pain History of Present Illness HPI Narrative: Patient is a 52-year-old male presenting with acute on chronic knee pain. Patient states that he has had bilateral knee pain for several years. States that he is seeing an orthopedic doctor at [place] to have his knees replaced. States that they have tried cortisone shots with minimal relief. States that he had a fall sometime within the last few weeks and his left knee has been hurting more than normal. States that his nursing facility has been ignoring him so he asked to come in for evaluation. He is asking for Ativan currently. He denies fevers or chills, headache, numbness or weakness, chest pain, shortness of breath, abdominal pain, vomiting, back pain, leg swelling. Related Data Home Medications Medication Instructions Recorded Confirmed insulin glargine 100 unit/mL (3 20 unit subcut DAILY 12/17/21 07/28/22 mL) subcutaneous pen (myParcelDeliveryaglar KwikPen U-100 Insulin) lorazepam 0.5 mg tablet 1 tablet PO BID PRN Anxiety 02/14/22 07/28/22 pregabalin 150 mg capsule 1 cap PO DAILY 02/17/22 07/28/22 albuterol (refill) 90 mcg inhalation 07/28/22 07/28/22 mcg/actuation aerosol inhaler citalopram 40 mg tablet 40 mg PO DAILY 07/28/22 07/28/22 metformin 500 mg tablet 500 mg PO DAILY 07/28/22 07/28/22 Allergies Allergy/AdvReac Type Severity Reaction Status Date / Time latex Allergy Unknown Blister Verified 07/28/22 12:42 Penicillins Allergy Unknown Nausea and Verified 07/28/22 12:42 Vomiting Review of Systems Review of Systems: All systems reviewed & are unremarkable except as noted in HPI and below PMFSH Past Medical History Medical History Anxiety COPD (chronic obstructive pulmonary disease) Diabetes DVT (deep venous thrombosis) Fibromyalgia H/O: HTN (hypertension) Headache Hepatitis B History of stroke Left knee pain Myocardial infarction Pancreatitis TIA (transient ischemic attack) Trigeminal neuralgia Surgical History Surgical History History of eye surgery right History of nasal surgery History of shoulder surgery left Family History Family History Mother Breast cancer Other Hypertension Social History Social History Social History: History of alcohol abuse Smoking status: Current some day smoker Tobacco type: cigars Alcohol intake: former Substance use: former Substance use type: marijuana Living arrangements: alone Occupation/Education: unemployed Gender identity (if verbalized by the patient): Male Sexual Orientation (if Verbalized by the Patient): Straight or Heterosexual Spiritual care concerns: No Exam Narrative: GENERAL: obese male laying in bed in no acute distress, nontoxic HEAD: Normocephalic, atraumatic. EYES: PERRLA and EOMI. ENT: Nares clear, no rhinorrhea or epistaxis. Mucous membranes moist. NECK: Supple. CHEST: Clear to auscultation. No respiratory distress. HEART: Regular rate and rhythm. Normal peripheral pulses. ABDOMEN: Soft, nontender, obese abdomen EXTREMITIES: Normal range of motion. No edema. abrasion to lateral aspect of left knee without evidence of infection SKIN: Warm, dry, abrasion left knee as above NEURO: No focal deficits. Alert and oriented x3. PSYCH: Normal mood and affect. Course Vital Signs Vital signs: Vital Signs Temperature 97.8 F 02/07/23 23:37 Pulse Rate 107 H 02/07/23 23:37 Respiratory Rate 18 02/07/23 23:37 Blood Pressure 107/78 02/07/23 23:37 Pulse Oximetry 98 02/07/23 23:37 Oxygen Delivery Room Air 02/07/23 23:37 Temperature 97.8 F 02/07/23 23:37 Pulse Rate 100 02/08/23 05:28 Respiratory Rat
[2023-02-07] MEDS: ACETAMINOPHEN 500 MG TABLET 1000 MG PO (23:49)
[2023-02-08 00:24] VITALS: BP 111/72; PULSE 112; RESP 20; O2SAT 99
--- NOTE | 2023-02-08 02:28 | PC.NURSE ---
Attempted to call [facility] in [place] to give report on pt and inquire about transportation. Phone number does not ring and unable to make contact. improvement engineer aware.
--- NOTE | 2023-02-08 02:35 | PC.NURSE ---
Hai Harden called to obtain alternative phone number for [place] location. Call did not go through and unable to speak with [facility] worker.
--- NOTE | 2023-02-08 02:52 | PC.NURSE ---
Pt states there is nobody he can call to come pick him up. States he does not have any family/friends in the area.
--- NOTE | 2023-02-08 03:55 | PC.NURSE ---
Attempted to contact [facility]. Call still unable to go through.
--- NOTE | 2023-02-08 05:03 | PC.NURSE ---
Called [facility] in [place], spoke with one of the workers there. She states pt is supposed to call [employer] in [place] and the worker will sign the slip for the equipment driver.
--- NOTE | 2023-02-08 05:10 | PC.NURSE ---
Called [facility] cab to arrange ride but there was no answer. Will try again.
--- NOTE | 2023-02-08 05:14 | PC.NURSE ---
Called [employer] back. ETA is 20 minutes.
--- NOTE | 2023-02-08 05:27 | PC.NURSE ---
Pt taken out to waiting room in wheelchair. Gave pt strict instructions to remain in his wheelchair and the triage nurse will take him outside when the cab arrives. Pt verbalized understanding. test preparer Monik davis.
[2023-02-08 05:28] VITALS: BP 110/65; PULSE 100; RESP 16; O2SAT 97
== END 2023-02-08 05:30 ==
PROVIDERS: Emergency Provider Emergency Medicine; PCP Nurse Practitioner
DX: M25.562 Pain in left knee (principal); M25.561 Pain in right knee; G89.29 Other chronic pain; J44.9 Chronic obstructive pulmonary disease, unspecified; E11.9 Type 2 diabetes mellitus without complications; I10 Essential (primary) hypertension; I25.2 Old myocardial infarction; M79.7 Fibromyalgia; F41.9 Anxiety disorder, unspecified; Z86.73 Personal history of transient ischemic attack (TIA), and cerebral infarction without residual deficits; Z86.718 Personal history of other venous thrombosis and embolism; Z79.4 Long term (current) use of insulin; Z79.84 Long term (current) use of oral hypoglycemic drugs; F17.290 Nicotine dependence, other tobacco product, uncomplicated; M25.462 Effusion, left knee
CPT/HCPCS: 73562; 99284; A9270